=== PATIENT | female | born 1940 | race Caucasian/White ===

== ENCOUNTER 2021-06-18 17:32 | Outpatient (REF) | payer MEDICARE, SELFPAY ==
[2021-06-18 21:30] LABS: Abs Immature Grans 0.03 10^3/uL (0.0-0.06); Absolute Basophil Count 0.04 10^3/uL (0.0-0.2); Absolute Eosinophil Count 0.12 10^3/uL (0.0-0.7); Absolute Monocyte Count 0.61 10^3/uL (0.1-0.8); Absolute Neutrophil Count 7.24 10^3/uL (1.2-6.7); Basophils % 0.4; Eosinophils % 1.3; HCT 38.8 % (36.0-46.0); HGB 12.5 g/dL (11.2-15.7); Immature Grans % 0.3; MCHC 32.2 % (32.0-36.0); MCV 93.3 fL (80-95); MPV 10.4 fL (8.0-11.0); Monocytes % 6.6; Neutrophils % 78.4; Nucleated RBC 0 %; Platelet Count 299 10^3/uL (130-400); RBC 4.16 10^6/uL (3.93-5.22); RDW 12.1 % (11.7-14.6); RDW-SD 41.9 fL; WBC 9.24 10^3/uL (4.4-10.8)
[2021-06-18 21:35] LABS: ESR 28 mm/hr (0-30)
[2021-06-18 21:49] LABS: C-Reactive Protein 8.35 mg/dL (0.0-0.3)
== END 2021-06-18 17:33 | disposition home or self-care (01) ==
LOC: NCHCN 17:32
PROVIDERS: PCP Family Medicine; Visit Provider Family Medicine
DX: R53.83 Other fatigue; M62.81 Muscle weakness (generalized); R52 Pain, unspecified
CPT/HCPCS: 85652; 85025; 86140

== ENCOUNTER 2021-07-03 17:11 | Outpatient (REF) | payer MEDICARE, SELFPAY | END 2021-07-03 17:12 | disposition home or self-care (01) | LOC: NCHCN 17:11 | PROVIDERS: PCP Family Medicine; Visit Provider Family Medicine | DX: R53.83 Other fatigue (principal); M62.81 Muscle weakness (generalized); M25.59 Pain in other specified joint | CPT/HCPCS: 86140 ==

== ENCOUNTER 2022-02-15 14:49 | Outpatient (REF) | payer MEDICARE, SELFPAY ==
--- OUTSIDE RECORDS SUMMARY | 2022-02-15 15:06 | XMS_ITS | Encounter Summary ---
:1940 Author Organization [facility] Address [address] [place] [address] Care Team Providers Name Role Phone Leena Higgins MD Primary Care Provider Reason for Visit Reason Comments Other revision bilateral lower lid blepharoplasty Encounter Details Date Type Department Care Team Description 03/18/2019 Office Visit [facility] Romel Garcia for Plastic, Reconstructive D, cosmetic surgery & Cosmetic Surgery - [address] [place] [address] (P rimary Dx) [address], [address] [place] [phone] Social History Tobacco Use Types Packs/Day Years Used Date Never Smoker Smokeless Tobacco: Never Used Alcohol Use Standard Drinks/Week Comments Yes 0 (1 standard drink = 0.6 oz pure alcoho l) Wine occasionally Alcohol Habits Answer Date Recorded How often do you have a drink containing alcohol? Not asked How many drinks containing alcohol do you have on a Not aske d typical day when you are drinking? How often do you have six or more drinks on one Not asked occasion? Comment: Wine occasionally 04/24/2010 Sex Assigned at Date Recorded Not on file documented as of this encounter Patient Instructions Patient Quin Fournier RN - 03/18/2019 14:00 EDT May shower after 24 hour, pat wounds dry gently, please do rub your eyes Bacitracin ointment to wounds twice per day Tylenol as needed for discomfort as advised on the label You may use an ice pack on your eyes tonight for comfort after 9pm, when anesthetic has worn off, for 10 minutes at a time. documented in this encounter Progress Notes Quin Garcia RN - 03/18/2019 1400 EDT Pre-procedure time out completed using two unique patient identifiers. Correct procedure confirmed and surgical site marked. All team members participated in pause and concurred. When applicable: the fire risk assessment was reviewed. .me omel Garcia MD, MD - 03/18/2019 1400 EDT Patient's Name: Dina Garzon Date of Service: 03/18/19 Interval History: Ms. Garzon returns for planned revision of her bilateral lower blepharoplasties.She notes that she still has small bags laterally under both eyes, worse on her right side than on her left and that her goal today is to improve those. She has been feeling well recently and has had no recent changes in her medical health. Physical Examination: There were no vitals filed for this visit. Ms. Garzon is resting comfortably and is in no acute distress. She is alert and oriented; her interactions are appropriate. Examination of the face reveals that the lower blepharoplasty incisions have healed nicely. There isno ectropion on either side. There is very mild residual fullness laterally on both sides along the tear trough, more noticeable on the right than on the left. Imaging: There is no new imaging Lab Studies: There are no recent lab studies Impression and Plan: Ms. Garzon is a 78 year old woman who is here today for revision of her lower blepharoplasties to address residual lateral fullness. The procedure, risks, benefits, rationale, alternatives, and expectations were reviewed with her. Risks discussed included, but were not limited to, bleeding, infection, hematoma, seroma, need for additional surgery, poor cosmetic outcome, asymmetry, adverse scarring including hypertrophic or keloid scar, ectropion, eyelid malposition or dysfunction, changes in sensation. We discussed the expected recovery process. We discussed post-surgical activity restrictions. We discussed the follow up plan. I sought and answered her questions. She verbalized understanding andelected to proceed with surgery. The informed consent was signed and placed in the paper chart. For details of the procedure, please see the associated procedure note. Follow up next Friday/Friday for suture removal Ophthalmic bacitracin to eyelid incisions twice daily Romel Garcia MD cooker meal and Pediatrics Plastic, Reconstructive, and Cosmetic Surgery Craniofacial and Pediatric Plastic Surgery documented in this encounter Procedure Notes Romel Garcia MD, MD - 03/18/2019 1400 EDT Patient Name: Dina Garzon Date of Service: 03/18/19 Preoperative Diagnosis: (1) cosmetic deformity of lower eyelids Postoperative Diagnosis: (1) cosmetic deformity of lower eyelids Procedure Performed: (1) revision lower blepharoplasties Attending Surgeon: Dr. Romel Garcia Anesthesia: 2cc 1% lidocaine with epinephrine 1:100,000 Estimated Blood Loss: 5cc Specimens: none Indication for procedure: Ms. Garzon is a 78 year old woman who has previously had lower blepharoplasties by me and returns today for scheduled revision due to residual lateral fullness, worse on the right than on the left. Consent: The procedure, risks, benefits, rationale, alternatives, and expectations were reviewed with her. Risks discussed included, but were not limited to, bleeding, infection, hematoma, seroma, need for additional surgery, poor cosmetic outcome, asymmetry, adverse scarring including hypertrophic or keloid scar, ectropion, eyelid malposition or dysfunction, changes in sensation. We discussed the expected recovery process. We discussed post-surgical activity restrictions. We discussed the follow up plan. I sought and answered her questions. She verbalized understanding and elected to proceed with surgery. The informed consent was signed and placed in the paper chart. Description of procedure: A pre-procedure time out was performed. The patient was marked for revision of her bilateral lower blepharoplasties. We reviewed the markings in the mirror and they were approved by the patient. The area was infiltrated with 1% lidocaine with epinephrine 1:100,000. The patient was then prepped and draped in the usual fashion. After waiting an appropriate period for the epinephrine and anesthetic to take effect, The left lateral portion of the previous lower blepharoplasty incision was re-opened using a #15 blade. The skin flap was elevated down to the level of the festoon, taking care to leave the orbicularis muscle down. Complete hemostasis was achieved by applying gentle pressure. The orbicularis muscle was anchored to the lateral orbital rim periosteum with two 5-0 monocryl sutures. The skin was re-draped and marked for excision, then tailor-tacked in place. The mirror was brought in for Ms. Garzon to view her appearance. She felt that the planned excision achieved the desired outcome for her lateral lower eyelid.The excision as performed with iris scissors. The skin was then closed with 6-0 monocryl deep sutures followed by 6-0 prolene simple interrupted skin stitches. The same procedure was then performed on the right side, with Ms. Garzon again approving the planned excision and the final result once both sides were closed. Ophthalmic bacitracin ointment was applied to the incisions. At this point the procedure concluded. The patient tolerated the procedure well. There were no immediate adverse events. All sponges, needles, and instruments were accounted for at the conclusion of the procedure. We reviewed home wound care and scar care. We discussed activity restrictions. We discussed post-operative medications. We discussed the follow up plan. We reviewed concerning signs and symptoms that should prompt a telephone call, an early follow up visit, or a visit to the Emergency Department. I sought and answered her questions. She verbalized understanding and appreciation for her care. documented in this encounter Plan of Treatment Not on filedocumented as of this encounter Visit Diagnoses Diagnosis Encounter for cosmetic surgery - Primary Other plastic surgery for unacceptable c osmetic appearance documented in this encounter Care Teams Academic Tutor Relationship Specialty Start Date End Date Leena Higgins MD PCP - General 03/22/10 [address] [place] [address] documented as of this encounter
--- OUTSIDE RECORDS SUMMARY | 2022-02-15 15:06 | XMS_ITS | Encounter Summary ---
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 Cognitive Status Response Date of Assessment Because of a physical, mental, or emotional condition, No 07/24/2021 does this person have serious difficulty concentrating, remembering, or making decisions? documented as of this encounter Plan of Treatment Not on filedocumented as of this encounter Procedures Procedure Name Priority Date/Time Associated Diagnosis Comme nts CCP ANTIBODIES Routine 07/24/2021 16:22 PMR (polymyalgia Resul ts for this EST rheumatica) ([facility]) proced ure are in ([facility]) the results section. HEPATITIS C AB W Add-On 07/24/2021 16:22 Polyarthritis with R esults for this REFLEX TO HCV RNA EST positive rheumatoid pro cedure are in BY PCR factor ([facility]) ([facility]) the r esults section. HEPATITIS B CORE Add-On 07/24/2021 16:22 Polyarthritis with R esults for this ANTIBODY (TOTAL) EST positive rheumatoid proc edure are in factor ([facility]) ([facility]) the results Encounter for section. screening for other viral diseases HEPATITIS B SURFACE Add-On 07/24/2021 16:22 Polyarthritis wit h Results for this ANTIBODY EST positive rheumatoid procedur e are in factor ([facility]) ([facility]) the results Encounter for section. screening for other viral diseases HEPATITIS B SURFACE Add-On 07/24/2021 16:22 Polyarthritis wit h Results for this ANTIGEN EST positive rheumatoid procedur e are in factor ([facility]) ([facility]) the results Encounter for section. screening for other viral diseases SED RATE Routine 07/24/2021 16:22 PMR (polymyalgia Results for this EST rheumatica) ([facility]) proced ure are in ([facility]) the results section. C REACTIVE PROTEIN Routine 07/24/2021 16:22 PMR (polymyalgia R esults for this EST rheumatica) ([facility]) proced ure are in ([facility]) the results section. ANTI NUCLEAR AB Routine 07/24/2021 16:22 PMR (polymyalgia Resu lts for this (KETAN), IFA EST rheumatica) ([facility]) proced ure are in ([facility]) the results Malaise and fatigue section. documented in this encounter Results HEPATITIS B CORE ANTIBODY (TOTAL) (07/24/2021 16:22 EST) Pathologist Sig nature Hepatitis B Core Ab, Negative Negative [facility] Total LABORATORY SERVICES Specimen Blood - Venous blood (substance) Performing Organization Address City/State/ZIP Code Phon e Number [facility]ORATORY [address] [place] [address] SERVICES HEPATITIS B SURFACE ANTIGEN (07/24/2021 16:22 EST) Pathologist [facility] Hep B Surface Ag Negative Negative [facility] Comment: MED CENTER LAB Expected values: Negative The results of this assay ca n be falsely lowered due to the consumption of Biotin. Specimen Blood - Venous blood (substance) Performing Organization Address City/[facility]/ZIP Code Phon e Number [facility] [address] [place] [address] HEPATITIS C AB W REFLEX TO HCV RNA BY PCR (07/24/2021 16:22 EST) Pathologist Sig nature Hep C Antibody Negative Negative [facility] Specimen Blood - Venous blood (substance) Performing Organization Address [facility]/ZIP Code Phon e Number [facility] [address] [place] [address] HEPATITIS B SURFACE ANTIBODY (07/24/2021 16:22 EST) Pathologist [facility] Hep B Surface Ab, 0.0 See Note [facility] Quantitative Comment: mIU/mL [facility] Clinical Interpretation of Immune Status: Patient is considered to be not immune to infection wi th HBV. The results of this assay can be falsely lowered due t o the consumption of Biotin. Reference Range for Hep B Surface Ab, Quant: Positive: ?>= 12.00 mIU/mL Negative: ?< 5.00 mIU/mL Indeterminate: ??>= 5.00 mIU/mL and < 12.00 mIU/mL Specimen Blood - Venous blood (substance) Performing Organization Address [facility]/ZIP Code Phon e Number [facility] [address] [place] [address] (ABNORMAL) ANTI NUCLEAR AB (KETAN), IFA (07/24/2021 16:22 EST) KETAN Interpretation Positive (A) Negative [facility] Comment: CENTER LABORATORY For titers greater than or e qual to 1:160 (except the centromere and nucleolar patterns) it is recommended that specific follow-up autoantibody testing ??(such as for dsDNA and Extractable Nuclear Antig SERVICES ens) be performed on all diffuse and/or speckled patterns NOTE: For add-on testing dsD NA is stable for 7 days refrigerated while Extractable Nuclear Antigens are only stable for 48 hours refrigerated. KETAN Titer and Pattern 1:160 Homogeneous [facility] C[facility] LABORATORY SERVICES Specimen Blood - Venous blood (substance) Narrative [facility] SERVICES - 07/25/2021 15:06 EST Results were obtained with the [employer] NOV A Lite HEp-2 KETAN Kit by indirect immunofluorescence. Performing Organization Address City/[facility]/ZIP Code Phon e Number [facility]OR[facility]ORY [address] [place] [address] SERVICES CCP ANTIBODIES (07/24/2021 16:22 EST) Pathologist Sig nature CCP Antibodies <2.5 <5.0 U/mL [facility] LABORAT ORY SERVICES Specimen Blood - Venous blood (substance) Performing Organization Address City/[facility]/ZIP Code Phon e Number [facility]OR[facility]ORY [address] [place] [address] SERVICES SED RATE (07/24/2021 16:22 EST) Pathologist Sig nature Sed Rate 9 0 - 30 mm/hr [facility] L AB Specimen Blood - Venous blood (substance) Performing Organization Address [facility] Phon e Number [facility] [address] [place] [address] (ABNORMAL) C REACTIVE PROTEIN (07/24/2021 16:22 EST) Pathologist Sig nature C-Reactive Protein 12.7 (H) <10.0 mg/L [facility] Specimen Blood - Venous blood (substance) Performing Organization Address [facility] Phon e Number [facility] [address] [place] [address] documented in this encounter Visit Diagnoses Diagnosis PMR (polymyalgia rheumatica) ([facility]) ( [facility]) Polymyalgia rheumatica Malaise and fatigue Other malaise and fatigue Polyarthritis with positive rheumatoid f actor ([facility]) ([facility]) Encounter for screening for other viral diseases documented in this encounter Care Teams Motor Rebuilder Relationship Specialty Start Date End Date Leena Higgins MD PCP - General 03/22/[address] [place] [address] documented as of this encounter
--- OUTSIDE RECORDS SUMMARY | 2022-02-15 15:06 | XMS_ITS | Encounter Summary ---
:1940 Author Organization [facility] Address [address] [place] [address] Care Team Providers Name Role Phone Leena Higgins MD Primary Care Provider Reason for Visit Reason Comments Follow-up lower blephs. sx-03/18/19 Encounter Details Date Type Department Care Team Description 04/15/2019 Office Visit [facility] Romel Garcia for Plastic, Reconstructive D, cosmetic surgery & Cosmetic Surgery - [address] [place] [address] (P rimary Dx) [facility] [address] [facility], [address] [place] [phone] Social History Tobacco Use Types Packs/Day Years [...] on file documented as of this encounter Progress Notes Romel Garcia MD, MD - 04/15/2019 1045 EDT Patient's Name: Dina Garzon Date of Service: 04/15/19 Interval History: Ms. Garzon returns for follow up of her revision lower blepharoplasties. She feels that she has had a good result on the left side, but she still sees some puffiness in the festoon region of her right lower eyelid. She is also curious how long it will take the scars to smooth out. Physical Examination: There were no vitals filed for this visit. Ms. Garzon is resting comfortably and is in no acute distress. She is alert and oriented; her interactions are appropriate. Examination of the face reveals that the eyelid incisions are healing nicely. There is no erythema, drainage, or sign of infection. There is some palpable scar tissue, but no more than expected at thisstage. There is good symmetry between the left and right sides and the difference in the festoon regions is extremely subtle. Imaging: There is no new imaging Lab Studies: There are no recent lab studies Impression and Plan: Ms. Garzon is a 78 year old woman who is about 4 weeks status post revision lower blepharoplasties. She is healing well overall and has a good result. She notices some residual fullness of the right side in the area where she had her festoon, but the difference is subtle. We discussed scar maturation and the healing process and I explained that I recommend waiting at least three months before doingany further surgery. We discussed that the difference is quite subtle and we are reaching a point ofdiminishing returns for additional surgery, but that my ultimate goal is for her to be satisfied with the result. I sought and answered her questions. She verbalized understanding and appreciation for h er care. She will follow up with me in a couple of months to continue our conversation Romel Garcia MD recycle worker and Pediatrics Plastic, Reconstructive, and Cosmetic Surgery Craniofacial and Pediatric Plastic Surgery documented in this encounter Plan of Treatment Not on filedocumented as of this encounter Visit Diagnoses Diagnosis Encounter for cosmetic surgery - Primary Other plastic surgery for unacceptable c osmetic appearance documented in this encounter Discontinued Medications Medication Sig Discontinue Reason Start Date End Date acetaminophen (TYLENOL) Take 650 mg by Therapy completed 10/30/2018 04/15/2019 325 mg capsule mouth every 6 hours as needed for Pain. bacitracin ophthalmic Apply thin layer 10/30/2018 ointment twice a day. documented as of this encounter Care Teams Shipmaster Relationship Specialty Start Date End Date Leena Higgins MD PCP - General 03/22/[address] [place] [address] documented as of this encounter
--- OUTSIDE RECORDS SUMMARY | 2022-02-15 15:06 | XMS_ITS | Encounter Summary ---
:1940 Author Organization [facility] Address [address] [place] [address] Care Team Providers Name Role Phone Leena Higgins MD Primary Care Provider Reason for Visit Reason Onset Date Comments Appointment Related 01/24/2022 01.30.2022 Encounter Details Date Type Department Care Team Description 01/24/2022 Telephone [facility] - Aleksandar Gonzalez ment Related [facility] Rheumatology JASON Aguila (01.30.2022) [address] [place] [address] [facility], [address] [place] [phone] Social History Tobacco Use Types Packs/Day Years [...] making decisions? documented as of this encounter Miscellaneous Notes Telephone Encounter - Sherice Rivas - 01/24/2022 1530 EDT Reason for Call: Appointment Related (01.30.2022) Summary/Symptoms: Per patient, cancelled 8.17 appt as she is feeling fine and does not feel she needs this appt at this time. She will call back to schedule when she feels she needs to be seen again. Sherice Rivas 01/24/2022 15:31 documented in this encounter Plan of Treatment Not on filedocumented as of this encounter Visit Diagnoses Not on filedocumented in this encounter Care Teams Blueprint Processor Relationship Specialty Start Date End Date Leena Higgins MD PCP - General 03/22/[address] [place] [address] documented as of this encounter
--- OUTSIDE RECORDS SUMMARY | 2022-02-15 15:06 | XMS_ITS | Encounter Summary ---
:1940 Author Organization [facility] Address [address] [place] [address] Care Team Providers Name Role Phone Leena Higgins MD Primary Care Provider Reason for Visit Reason Comments Follow-up blepharoplasty 10/30 Encounter Details Date Type Department Care Team Description 11/30/2018 Office Visit [facility] Romel Garcia for Plastic, Reconstructive D, cosmetic surgery & Cosmetic Surgery - [address] [place] [address] (P rimary Dx) [address], [address] [place] [phone] Social History Tobacco Use Types Packs/Day Years [...] of this encounter Progress Notes Romel Garcia MD - 11/30/2018 1100 EDT Patient's Name: Dina Garzon Date of Service: 11/30/18 Interval History: Ms. Garzon returns for follow up of her bilateral upper and lower blepharoplasties. She continues to heal well, but remains disappointed with the results of her lower eyelids, particularly in the festoon area. Physical Examination: There were no vitals filed for this visit. Ms. Garzon is resting comfortably and is in no acute distress. She is alert and oriented; her interactions are appropriate. Examination of the face reveals that the incisions are healing nicely. There is no sign of infectionat any of the surgical sites. The bruising has improved and there is good symmetry, but there are still residual festoons bilaterally. Imaging: There is no new imaging Lab Studies: There are no new lab studies Impression and Plan: Ms. Garzon is now about 1 month status post bilateral upper and lower blepharoplasties. She is healing well overall, but is disappointed in the result of her lower eyelid surgery. We discussed the expected healing process and that she may still continue to see improvement as she heals. We discussed that if the results are not to her satisfaction, I will do my best to revise them to meet her needs. We discussed wound and scar care. I sought and answered her questions. She verbalized understanding and appreciation for her care. She will follow up with me in about 1 month. If she remains dissatisfied at that point, we will schedule an in-office revision for about 3 months after her original surgerydate Romel Garcia MD online content editor and Pediatrics Plastic, Reconstructive, and Cosmetic Surgery Craniofacial and Pediatric Plastic Surgery documented in this encounter Plan of Treatment Not on filedocumented as of this encounter Visit Diagnoses Diagnosis Encounter for cosmetic surgery - Primary Other plastic surgery for unacceptable c osmetic appearance documented in this encounter Care Teams Animal Behaviorist Relationship Specialty Start Date End Date Leena Higgins MD PCP - General 03/22/[address] [place] [address] documented as of this encounter
--- OUTSIDE RECORDS SUMMARY | 2022-02-15 15:06 | XMS_ITS | Encounter Summary ---
:1940 Author Organization [facility] Address [address] [place] [address] Care Team Providers Name Role Phone Leena Higgins MD Primary Care Provider Encounter Details Date Type Department Care Team Description 07/25/2021 Orders Only [facility] - Carmelita Gonzalezart hritis with positive rheumatoid factor (HCC-CMS) (HCC) (Primary Dx); [facility] Rhe[place]ology JASON Aguila Encounter for screening for other viral diseases [address] [place], [place] [id number] [place] [address], [address] [place] [phone] Social History Tobacco Use Types Packs/Day Years [...] making decisions? documented as of this encounter Progress Notes Ayla Gonzalez APRN - 07/25/2021 0915 EST Elevated rheumatoid factor from bloodwork. Added on hepatitis panel to evaluate other possible causes. documented in this encounter Plan of Treatment Not on filedocumented as of this encounter Results HEPATITIS B SURFACE ANTIBODY (07/24/2021 16:22 EST) Hep B Surface Ab, 0.0 See Note [facility] Quantitative Comment: mIU/mL [facility] Clinical Interpretation of Immune Status: [...] - Venous blood (substance) Performing Organization Address [facility]/ZIP [facility] Phon e Number [facility] [address] [place] [address] HEPATITIS B CORE ANTIBODY (TOTAL) (07/24/2021 16:22 EST) Pathologist Sig nature Hepatitis B Core Ab, Negative Negative [facility] Total LABORATORY SERVICES Specimen Blood - Venous blood (substance) Performing Organization Address City/[facility]/ZIP Code Phon e Number [facility] [address] [place] [address] SERVICES HEPATITIS C AB W REFLEX TO HCV RNA BY PCR (07/24/2021 16:22 EST) Pathologist Sig nature Hep C Antibody Negative Negative [facility] Specimen Blood - Venous blood (substance) Performing Organization Address [facility] Phon e Number [facility] [address] [place] [address] HEPATITIS B SURFACE ANTIGEN (07/24/2021 16:22 EST) Hep B Surface Ag Negative Negative [facility] Comment: [facility] Expected values: Negative The results of this assay ca n be falsely lowered due to the consumption of Biotin. Specimen Blood - Venous blood (substance) Performing Organization Address City/State/ZIP Code Phon e Number [facility] [address] [place] [address] documented in this encounter Visit Diagnoses Diagnosis Polyarthritis with positive rheumatoid f actor ([facility]) ([facility]) - Primary Encounter for screening for other viral diseases documented in this encounter Care Teams Command And Control Specialist Relationship Specialty Start Date End Date Leena Higgins MD PCP - General 03/22/10 [address] [place] [id number] documented as of this encounter
--- OUTSIDE RECORDS SUMMARY | 2022-02-15 15:06 | XMS_ITS | Encounter Summary ---
:1940 Author Organization [facility] Address [address] [place] [address] Care Team Providers Name Role Phone Leena Higgins MD Primary Care Provider Reason for Visit Reason Onset Date Comments Post-OP Follow Up 11/02/2018 Encounter Details Date Type Department Care Team Description 11/02/[address] [facility] Evangelina Velásquez RN Post-OP Follow Up Plastic, Reconstructive & [address] [place] [address] Cosmetic Surgery - [place], [place] [id number] [place] [address], [address] [place], [place] [id number] Social History Tobacco Use Types Packs/Day Years [...] on file documented as of this encounter Miscellaneous Notes Telephone Encounter - Evangelina Velásquez RN - 11/02/2018 1508 EDT Post op follow up phone call was made 11/02/18 Patient condition was discuss with Dina Type of Surgery: bilateral Upper and lower blephroplasty Surgeon:Romel Garcia MD Date of Surgery:10/30/18 Appetite:no nausea and no vomiting normal po intake Activity: wnl Drains: Drains none Incision and dressings:no concerns Pain:well controlled no pain per patient ABX:Yes bacitracin ointment BID Fever:no fever or chills Voiding:wnl Problems/ Concerns none Additional Info / Patient education Using cloths soaked in ice water and applying to her eyelids to help decrease the swelling. Date of post-op/ follow up visit 11/03/18 EVANGELINA VELÁSQUEZ RN documented in this encounter Plan of Treatment Not on filedocumented as of this encounter Visit Diagnoses Not on filedocumented in this encounter Care Teams Communications Strategist Relationship Specialty Start Date End Date Leena Higgins MD PCP - General 03/22/10 [address] [place] [id number] documented as of this encounter
--- OUTSIDE RECORDS SUMMARY | 2022-02-15 15:06 | XMS_ITS | Encounter Summary ---
:1940 Author Organization [facility] Address [address] [place] [address] Care Team Providers Name Role Phone Leena Higgins MD Primary Care Provider Reason for Visit Reason Comments Post-OP Follow Up Encounter Details Date Type Department Care Team Description 06/28/2019 Post-op Visit [facility] Romel Garcia for Plastic, Reconstructive MD Griselda cosmetic surgery & Cosmetic Surgery - [address] [place] [address] (P rimary Dx) [facility] [address], [address] [place] [phone] Social History Tobacco Use Types Packs/Day Years [...] encounter Progress Notes Romel Garcia MD - 06/28/2019 1100 EST Patient's Name: Dina Garzon Date of Service: 06/28/19 Interval History: Ms. Garzon returns for follow up of her lower blepharoplasties. She reports thatshe still sees a significant residual fullness on the right side. The left side has smoothed more, but she also notes residual fullness just below and lateral to the eyelid on that side as well. Physical Examination: There were no vitals filed for this visit. Ms. Garzon is resting comfortably and is in no acute distress. She is alert and oriented; her interactions are appropriate. Examination of the face reveals that the eyelid incisions are well-healed. There is no erythema or sign of infection. The lids are in good position without ectropion. There is subtle fullness inferior and lateral to the right lower eyelid; there is a more subtle fullness in the same position on the left side. Imaging: There is no new imaging Lab Studies: There are no recent lab studies Impression and Plan: Ms. Garzon is a 78 year old woman who is here for follow up of lower blepharoplasties performed inOctober 2018 and revised in March 2019. She feels that there has been some improvement, particularly on the left side, but not as much as she would like. We discussed next steps to help address her concerns. We discussed filler for the tear trough area and we discussed additional surgery. We also discussed the option of no further intervention. I explained that I am not confident that I will be able toachieve the result she is looking for with an additional surgical procedure; I offered her referral to one of my partners or to Dr. Suh and/or Dr. Hewitt, my occuloplastic surgery colleagues, for a seco nd opinion. Ms. Garzon expressed her disappointment with the result and is not interested in referral at this time. She notes she is scheduled to see her change management director soon for laser treatment and that she is planning to ask them about options as well. I sought and answered her questions. She verbalized understanding and will follow up with me at her convenience to continue our conversation. Romel Garcia MD gas roller operator and Pediatrics Plastic, Reconstructive, and Cosmetic Surgery Craniofacial and Pediatric Plastic Surgery I spent 25 minutes in [id number] consultation with Ms. Garzon today. More than 50% of that time was spent in counseling and coordination of care as described in today's note. documented in this encounter Plan of Treatment Not on filedocumented as of this encounter Visit Diagnoses Diagnosis Encounter for cosmetic surgery - Primary Other plastic surgery for unacceptable c osmetic appearance documented in this encounter Care Teams Flue Cleaner Relationship Specialty Start Date End Date Leena Higgins MD PCP - General 03/22/10 [address] [place] [address] documented as of this encounter
--- OUTSIDE RECORDS SUMMARY | 2022-02-15 15:06 | XMS_ITS | Encounter Summary ---
:1940 Author Organization [facility] Address [address] [place] [address] Care Team Providers Name Role Phone Leena Higgins MD Primary Care Provider Reason for Visit Reason Comments Post-OP Follow Up suture removal, revision of her bilateral lower blepharoplasties Encounter Details Date Type Department Care Team Description 03/22/2019 Office Visit [facility] Romel Garcia for Plastic, Reconstructive D, cosmetic surgery & Cosmetic Surgery - [address] [place] [address] (P rimary Dx) [facility] [address] [facility], [address] [place] [phone] Social History Tobacco Use Types Packs/Day Years [...] Progress Notes Romel Garcia MD, MD - 03/22/2019 1130 EDT Patient's Name: Dina Garzon Date of Service: 03/22/19 Interval History: Ms. Garzon returns for follow up after revision of her lower blepharoplasties on03/18/2019. She reports that she was happy until she woke up this morning and noted that the swellingunder her eyes is worse today than it was yesterday. She sees some puffiness at the site of her previous under-eye bags and would like to know if this will smooth out. Physical Examination: There were no vitals filed for this visit. Ms. Garzon is resting comfortably and is in no acute distress. She is alert and oriented; her interactions are appropriate. Examination of the face reveals that there is some residual swelling of the lower eyelids. The overall contour has improved and there is good symmetry. There is no ectropion. The sutures were removed. There is no sign of erythema, drainage, or infection. There is mild periorbital bruising on both sides. Imaging: There is no new imaging Lab Studies: There are no recent lab studies Impression and Plan: Ms. Garzon returns for follow up 4 days after revision of her lower blepharoplasties. She noticed worse swelling today when she woke up compared to the day before and is concerned. We discussed that swelling typically peaks around 3 days after surgery, so having significant swelling 4 days later is not outside the normal range. We discussed that the lower eyelids were quite smooth and the bags had resolved at the end of surgery, so I expect that once the swelling goes down, she will end up with anappearance close to what we had at the end of her procedure. We discussed that there are no guarantees since the healing process can be variable, but that I have no reason to believe the swelling will not resolve. We discussed minimizing her activity level and taking things easy during the recovery process. We discussed concerning signs and symptoms to watch for. We discussed following up in about 3 weeks to allow things time to settle down. I sought and answered her questions. She verbalized understanding and appreciation for her care. Romel Garcia MD livestock buyer and Pediatrics Plastic, Reconstructive, and Cosmetic Surgery Craniofacial and Pediatric Plastic Surgery documented in this encounter Plan of Treatment Not on filedocumented as of this encounter Visit Diagnoses Diagnosis Encounter for cosmetic surgery - Primary Other plastic surgery for unacceptable c osmetic appearance documented in this encounter Care Teams Measurement And Verification Engineer Relationship Specialty Start Date End Date Leena Higgins MD PCP - General 03/22/[address] [place] [address] documented as of this encounter
--- OUTSIDE RECORDS SUMMARY | 2022-02-15 15:06 | XMS_ITS | Encounter Summary ---
:1940 Author Organization [facility] Address [address] [place] [address] Care Team Providers Name Role Phone Leena Higgins MD Primary Care Provider Reason for Visit Reason Comments Follow-up PMR. Reports feeling fine, n o areas are bothersome. Encounter Details Date Type Department Care Team Description 08/15/2021 Telemedicine [facility] - Carlos, Polyart hritis with positive rheumatoid factor ([facility]) ([facility]) (Primary Dx); [facility] [place] JASON Aguila PMR (polymyalgia rheumatica) ([facility]) ( [facility]) [address], [address] [place] [address] Social History Tobacco Use Types Packs/Day Years [...] on file documented as of this encounter Last Filed Vital Signs Vital Sign Reading Time Taken Comments Blood Pressure - - Pulse - - Temperature - - Respiratory Rate - - Oxygen Saturation - - Inhaled Oxygen Concentration - - Weight 63 kg (139 lb) 08/15/2021 0931 EST Height 162.6 cm (5' 4) 08/15/2021 0931 EST Body Mass Index 23.86 08/15/2021 0931 EST documented in this encounter Functional Status Functional Status Response [...] as of this encounter Progress Notes Ayla Gonzalez, PARUL - 08/15/2021 1300 EST [facility] [place] Visit Today's visit was provided via telephone audio only. The location of the patient: Home The location of the provider: Office Verbal consent: The concept of ???Telemedicine?? has been described to the patient. Patient has been informed of the anticipated benefits and possible risks. Patient understands the information provided regarding telemedicine, has had the opportunity to ask questions about this information, and all questions have been answered to patient???s satisfaction. Patient consents for the use of telemedicine in his/her medical care and authorizes the transmission of any relevant medical information to providers and their staff involved in patient???s medical or mental health care. Verbal consent obtained by myself or auxiliary staff: yes. I have determined that an audio-only visit is appropriate due to: Patient request Subjective: Chief Complaint(s): Follow-up (PMR. Reports feeling fine, no areas are bothersome.) HPI: Initial evaluation on 07/24/21 Onset of bilateral shoulder pain/weakness in May, Endorsed some mild hand swelling as well Sudden 16 pound weight loss in a month (had been modifying diet) Associated fatigue. Reported bald spot on crown of her head and hair thinning Previous labs on 06/18/21 - [facility] CRP = 8.35 (0-0.3), ESR = 28 07/03/21 - CRP = 6.5 (0-0.3) INTERVAL HISTORY: Additional labs drawn at [facility] on 07/24/21 -CCP, + RF 1:40; KETAN + 1:160 homogenous pattern CRP = 12.7 (< 10mg/L) Reports she is currently taking 15mg prednisone once daily Denies joint pain, swellig or myalgia. No fatigue Has long history of headaches but no change in quality or intensity of those headaches No vision changes Decided to cancel her trip Seeing Dr. Higgins her PCP next week for guidance with prednisone taper I have reviewed patient's tobacco history: reports that she has never smoked. She has never used smokeless tobacco. I have reviewed current problem list and current medications. ROS: Review of Systems Constitutional: Negative for malaise/fatigue and weight loss. Eyes: Negative for blurred vision and pain. Cardiovascular: Negative for chest pain and palpitations. Gastrointestinal: Negative for blood in stool, heartburn and nausea. Musculoskeletal: Negative for falls and joint pain. Skin: Negative for rash. Neurological: Positive for headaches. Objective: Examination: Home Vitals: Ht 162.6 cm (64) Wt 63 kg (139 lb) BMI 23.86 kg/m?? Pertinent exam findings: speaking in full sentences, no audible wheeze and mood and affect appropriate Data reviewed with patient: Reviewed and/or ordered active problem list, medication list, allergies,family history, notes from last encounter, lab results tests Assessment & Plan: 1. Polyarthritis with positive rheumatoid factor (HCC-CMS) ([facility]) Previous KETAN and RF positive with response to oral prednisone Recommend follow up labs to positive KETAN including ds DNA (double stranded DNA) and DICKSON (extractablenuclear antigen) panel to rule out other underlying rheumatologic processes 2. PMR (polymyalgia rheumatica) (HCC-CMS) ([facility]) Continue with prednisone taper and those meds will be managed by her PCP Had previously discussed appropriate tapering schedule with Dr. Higgins. If any increase in hand/wrist, joint swelling with lowering of prednisone, consider initiation of prednisone sparing agent such as hydroxychloroquine or methotrexate. Dina agreed to a follow up to be scheduled with me in 6 months. If that appointment is not needed as she is being closely followed by Dr. Higgins, ok to cancel and follow up as needed. Patient initiated phone contact with the office: yes. Patient is an established patient (parent, guardian) yes. E/M provided within previous 7 days for same medical assessment: no Anticipate E/M service within 24hrs or next available urgent appointment no. This visit was conducted by telephone. A total of 23 minutes was spent on this encounter on the day of this encounter. documented in this encounter Plan of Treatment Not on filedocumented as of this encounter Visit Diagnoses Diagnosis Polyarthritis with positive rheumatoid f actor ([facility]) ([facility]) - Primary PMR (polymyalgia rheumatica) ([facility]) ( [facility]) Polymyalgia rheumatica documented in this encounter Care Teams Sales Project Engineer Relationship Specialty Start Date End Date Leena Higgins MD PCP - General 03/22/10 [address] [place] [address] documented as of this encounter
--- OUTSIDE RECORDS SUMMARY | 2022-02-15 15:06 | XMS_ITS | Encounter Summary ---
:1940 Author Organization [facility] Address [address] [place] [address] Care Team Providers Name Role Phone Leena Higgins MD Primary Care Provider Encounter Details Date Type Department Care Team Description 07/10/2021 Abstract [facility] Ayla Cisneros NP Rheumatology [address] [facility] [address] [facility], [address] [place] [address] [place] [address] (Wo rk) Social History Tobacco Use Types Packs/Day Years [...] documented as of this encounter Progress Notes Jai Goddard MA - 07/10/2021 1018 EST Abstraction done 07/10/21 jms documented in this encounter Plan of Treatment Not on filedocumented as of this encounter Visit Diagnoses Not on filedocumented in this encounter Historical Medications This list may reflect changes made after this encounter. Medication Sig Dispensed Refills Start Date End Date predniSONE (DELTASONE) 10 Take 10 mg by mouth 0 0 06/20/2021 mg tablet daily. 20 MG daily x one week, then reduced to 10 mg calcium citrate/vitamin Take by mouth daily. 0 D3 (CALCIUM CITRATE + D 250-100 MG ORAL) added in this encounter Care Teams Dietitian Chief Relationship Specialty Start Date End Date Leena Higgins MD PCP - General 03/22/10 [address] [place] [id number] documented as of this encounter
--- OUTSIDE RECORDS SUMMARY | 2022-02-15 15:06 | XMS_ITS | Encounter Summary ---
:1940 Author Organization [facility] Address [address] [place] [address] Care Team Providers Name Role Phone Leena Higgins MD Primary Care Provider Reason for Visit Reason Comments Post-OP Follow Up Encounter Details Date Type Department Care Team Description 12/31/2018 Office Visit [facility] Romel Garcia for Plastic, Reconstructive D, cosmetic surgery & Cosmetic Surgery - [address] [place] [address] (P rimary Dx) [address], [address] [place] [phone] Social History Tobacco Use Types Packs/Day Years [...] encounter Progress Notes Romel Garcia MD - 12/31/2018 0930 EDT Patient's Name: Dina Garzon Date of Service: 12/31/18 Interval History: Ms. Garzon returns for follow up of her blepharoplasties. She reports that she is still bothered by her lateral lower eyelids. She reports no pain and no signs of infection Physical Examination: There were no vitals filed for this visit. Ms. Garzon is resting comfortably and is in no acute distress. She is alert and oriented; her interactions are appropriate. Examination of the face reveals that the surgical incisions have healed nicely. There is good symmetry, but there are still small bilateral festoons. There is no ectropion or entropion. Imaging: There is no new imaging Lab Studies: There are no recent lab studies Impression and Plan: Ms. Garzon is about 2 months status post bilateral upper and lower blepharoplasties. She remains dissatisfied with her bilateral festoons. We reviewed the options for treatment and I have recommendedan in-office revision to help with her concerns. We discussed the timing of the surgery and I recomme nded that she wait until 3 months after her original surgery. I sought and answered her questions. She verbalized understanding and would like to proceed. We will schedule at her convenience. We will take preoperative photos on the day of the procedure Romel Garcia MD oil burner mechanic and Pediatrics Plastic, Reconstructive, and Cosmetic Surgery Craniofacial and Pediatric Plastic Surgery documented in this encounter Plan of Treatment Not on filedocumented as of this encounter Visit Diagnoses Diagnosis Encounter for cosmetic surgery - Primary Other plastic surgery for unacceptable c osmetic appearance documented in this encounter Care Teams Sales Lead Generator Relationship Specialty Start Date End Date Leena Higgins MD PCP - General 03/22/[address] [place] [address] documented as of this encounter
--- OUTSIDE RECORDS SUMMARY | 2022-02-15 15:06 | XMS_ITS | Clinical Summary ---
:1940 Author Organization [facility] Address [address] [place] [address] Care Team Providers Name Role Phone Leena Higgins MD Primary Care Provider Allergies Active Allergy Reactions Severity Noted Date Comments Gabapentin 07/10/2021 Causes rash Medications Medication Sig Dispensed Refills Start Date End Date Status Glucosamine 1,000 mg Take by mouth 0 04/24/2010 Active Tab daily. ibuprofen (MOTRIN) 200 Take 200 mg by 0 Active mg tablet mouth every 6 hours as needed. omega 6-yis-sij-fish Take 1 Cap by 0 Active oil (FISH OIL) mouth daily. 120-180-500 mg capsule ZOLMitriptan (ZOMIG) Take 2.5 mg by 0 Active 2.5 mg mouth as needed tabletIndications: for Migraine. migraine calcium citrate/vitamin Take by mouth 0 Active D3 (CALCIUM CITRATE + D daily. 250-100 MG ORAL) predniSONE (DELTASONE) Take 10 mg by 0 06/20/2021 Active 10 mg tablet mouth daily. 20 MG daily x one week, then reduced to 10 mg Active Problems Problem Noted Date Memory deficit 07/03/2021 Proximal muscle weakness 07/03/2021 Malaise and fatigue 07/03/2021 Chronic arthralgias of knees and hips 07/03/2021 Myalgia 07/03/2021 Psoas tendinitis, left hip 07/03/2021 Bursitis of both shoulders 07/03/2021 Health care maintenance 07/03/2021 Screening breast examination 07/03/2021 Bundle branch block, right 07/03/2021 Migraine 07/03/2021 Screening for diabetes mellitus 07/03/2021 Overweight 07/03/2021 Encounters Date Type Specialty Care Team Description 01/24/2022 Telephone Rheumatology Ayla Gonzalez NP Appoi ntment Related (01.30.2022) from Last 3 Months Surgical History Surgery Date Site/Laterality Comments CATARACT REMOVAL Medical History Medical History Date Comments Cataract History of colonic polyps Date unknown Family History Medical History Relation Name Comments Arthritis Other Relation Name Status Comments Other Social History Tobacco Use Types Packs/Day Years Used Date Never Smoker Smokeless Tobacco: Never Used Tobacco Cessation: Counseling Given: No Alcohol Use Standard Drinks/Week Comments Yes 0 [...] Assigned at Date Recorded Not on file Last Filed Vital Signs Vital Sign Reading Time Taken Comments Blood Pressure 112/72 07/24/2021 1500 EST Pulse 92 07/24/2021 1500 EST Temperature 36.4 ??C (97.5 ??F) 07/24/2021 1500 EST Respiratory Rate 21 10/30/2018 191 EDT Oxygen Saturation 97% 10/30/20181914 EDT Inhaled Oxygen Concentration - - Weight 63 kg (139 lb) 08/15/2021 0931 EST Height 162.6 cm (5' 4) 08/15/2021 0931 EST Body Mass Index 23.86 08/15/2021 0931 EST Plan of Treatment Health Maintenance Due Date Last Done Comments COVID-19 Vaccine (#1) 02/18/1941 Fall Risk Screening 07/24/2022 07/24/2021 Insurance Payer Benefit Plan / Subscriber ID Effective Dates Phone Addre ss Type Group MEDICARE MEDICARE A/B [id number] 2006-Present [id number] [place] [address] Duran,Antoinet Personal/Family Self 1940 [address] [place] [address] Duran,Antoinet Personal/Family Self [address] [place] [address] Duran,Antoinet Personal/Family Self 1940 [address] ([address]) [address] [place], [place] [address] Care Teams Stretcher And Drier Relationship Specialty Start Date End Date Leena Higgins MD PCP - General 03/22/[address] [place] [address]
--- OUTSIDE RECORDS SUMMARY | 2022-02-15 15:06 | XMS_ITS | Encounter Summary ---
:1940 Author Organization [facility] Address [address] [place] [address] Care Team Providers Name Role Phone Leena Higgins MD Primary Care Provider Reason for Visit Reason Comments Post-OP Follow Up bilateral upper and lower bl epharoplasties Encounter Details Date Type Department Care Team Description 11/03/2018 Office Visit [facility] Romel Garcia for Plastic, Reconstructive D, cosmetic surgery & Cosmetic Surgery - [address] [place] [address] (P rimary Dx) [address], [address] [place] [id number] Social History Tobacco Use Types Packs/Day Years [...] encounter Progress Notes Romel Garcia MD - 11/03/2018 1045 EDT Patient's Name: Dina Garzon Date of Service: 11/03/18 Interval History: Ms. Garzon returns for follow up after bilateral upper and lower blepharoplasties. She reports that her pain is well controlled. She denies any fever, chills, nausea, vomiting, drainage, or redness. She has noticed no changes in her visual acuity. She also denies dry eyes or excessive tearing. Physical Examination: There were no vitals filed for this visit. Ms. Garzon is resting comfortably and is in no acute distress. She is alert and oriented; her interactions are appropriate. Examination of the face reveals that there is expected post-operative swelling and bruising. The surgical incisions are healing well. There is no erythema, drainage, or sign of infection. The sutures are ready to be removed. Imaging: There is no new imaging Lab Studies: There are no recent lab studies Impression and Plan: Ms. Garzon is now 4 days status post bilateral upper and lower blepharoplasties. She is here todayfor follow up and suture removal. The sutures were removed without difficulty. We reviewed wound andscar care. We discussed sun avoidance and using sunscreen once the incisions have completely healed.We discussed the expected recovery process from this point forward. We discussed concerning signs and symptoms that should prompt an early follow up visit, a telephone call, or a visit to the EmergencyDepartment. I sought and answered her questions. She verbalized understanding and appreciation for her care. She will follow up with me in 2-3 weeks Romel Garcia MD surfboard maker and Pediatrics Plastic, Reconstructive, and Cosmetic Surgery Craniofacial and Pediatric Plastic Surgery documented in this encounter Plan of Treatment Not on filedocumented as of this encounter Visit Diagnoses Diagnosis Encounter for cosmetic surgery - Primary Other plastic surgery for unacceptable c osmetic appearance documented in this encounter Care Teams C Python Developer Relationship Specialty Start Date End Date Leena Higgins MD PCP - General 03/22/10 [address] [place] [id number] documented as of this encounter
--- OUTSIDE RECORDS SUMMARY | 2022-02-15 15:06 | XMS_ITS | Encounter Summary ---
:1940 Author Organization [facility] Address [address] [place] [address] Care Team Providers Name Role Phone Leena Higgins MD Primary Care Provider Reason for Visit Reason Comments New Patient Visit Referred by PCP Leena Higgins MD at [facility] for proximal muscle weakness. Sh e states her PCP was treating her for PMR but then referred her he re for continued managment. Patient states she is feeling better and she isn't totally sure why she is here. She is currently takin g 10mg of prednisone. Encounter Details Date Type Department Care Team Description 07/24/2021 Office Visit [facility] - Galen Gonzalez current use of systemic steroids (Primary Dx); [facility] Rheumatology JASON Aguila PMR (polymyalgia rheumatica) ([facility] ( [facility]); [address] [facility] [place] [address] [facility], [address] [place] [address] Social History Tobacco Use Types [...] (97.5 ??F) 07/24/2021 1500 EST Respiratory Rate - - Oxygen Saturation - - Inhaled Oxygen Concentration - - Weight 62.5 kg (137 lb 12.8 oz) 07/24/2021 1500 EST Height - - Body Mass Index 23.65 10/16/2018 1117 EDT documented in this encounter Functional Status Functional [...] encounter Progress Notes Ayla Gonzalez APRN - 07/24/2021 1500 EST [facility] Rheumatology Chief Complaint Patient presents with ??? New Patient Visit Referred by PCP Leena Higgins MD at [facility] for proximal muscle weakness. Here PCP was treating her for PMR but then referred her here for continued managment. Patient states she is feeling better and she isn't totally sure why she is here. HPI: 80-year-old woman here today at the request of Leena Higgins MD for evaluation of primarily bilateral shoulder pain and weakness. Patient endorses that she thought she injured her shoulders while opening a window with inability toraise her arms up overhead as well as dress herself. Onset was approximately 45 weeks ago. Underwent bilateral shoulder injections without significant benefit. Labs on 06/18/2021 from [facility] CBC with elevated neutrophils = 7.25 CRP = 8.35 (0-0.3); ESR = 28 Repeat CRP on 07/03/2021 = 6.5 (0-0.3). States she had her first good day on 07/16/2021 with significant decrease in pain. No real immediate response to 10 mg of prednisone once daily initiated about 3 weeks ago. She does endorse some mild hand swelling as well. None in the last 2 weeks. Prior to that, was trying to modify her diet and lose some weight and then had sudden weight loss of16 pounds in 1 month. Weight has been stable in the last 2 weeks. Associated fatigue with her symptoms. Endorses that she as noticed some hair thinning and a bald spot of the crown of her head Has not had a DXA scan in about 14 years. Denies family history of fragility fractures. Mom had arthritis. Patient lives in [place] for the last 18 years. She and her are considering moving back to [place] to be closer to family in [facility] as well as be able to do their usual walking of 2-3 miles aday. Denies any previous joint pains or problems. Only eye symptoms are some floaters. No neck pain, jaw claudication or headaches. Current Outpatient Medications Medication ??? calcium citrate/vitamin D3 (CALCIUM CITRATE + D ORAL) ??? Glucosamine 1,000 mg Tab ??? ibuprofen (MOTRIN) 200 mg tablet ??? omega 3-hbe-vor-fish oil (FISH OIL) 120-180-500 mg capsule ??? predniSONE (DELTASONE) 10 mg tablet ??? ZOLMitriptan (ZOMIG) 2.5 mg tablet No current facility-administered medications for this visit. Allergies include: Gabapentin Past Medical History: Diagnosis Date ??? Cataract ??? History of colonic polyps Date unknown Family History Problem Relation Age of Onset ??? Arthritis Other Social History: Social History Tobacco Use ??? Smoking status: Never Smoker ??? Smokeless tobacco: Never Used Substance Use Topics ??? Alcohol use: Yes Comment: Wine occasionally ??? Drug use: No Previously from [place], [place]. Moved to [place] about 18 years ago. Likely will relocate back to [place] soon. Review of Systems: 13 point ROS was done with the patient. See scanned document for details. Pertinent positives and negatives are noted in the HPI. Physical Examination: Temp 36.4 ??C (97.5 ??F) Wt 62.5 kg (137 lb 12.8 oz) BMI 23.65 kg/m?? EYES: Conjunctivae not injected ENT: Oral and nasal mucosa not examined. Protective mask in place secondary to COVID-19 precautions. NECK: Supple. Normal extension and lateral rotation without pain. NO lymphadenopathy. CHEST: Clear to auscultation bilaterally. CARDIOVASCULAR: Regular rate and rhythm. No murmur. No peripheral edema. ABDOMEN: Soft, non tender. No hepatosplenomegaly. SKIN: No rash on arms, legs, trunk. No nail pitting. NEURO: Left hip flexor strength 4-/5 to manual muscle testing with discomfort. Sensation intact to light touch. MUSCULOSKELETAL EXAM: Normal resting posture. Ambulates with nonantalgic gait. Easily rises from sitting position to standing with good strength and stability without use of her arms. Bilateral shoulder motion well-preserved in forward flexion, abduction as well as internal and external rotation. Good strength manual muscle testing of her rotator cuff in both internal and external rotation. Hands with some bossing of first metacarpals without pain with CMC shuck and grind. Trace amount of tenosynovitis right ulnar wrist. No erythema or warmth. Mild appearance of Heberden nodes over DIP joints. Bilateral hip motion well-preserved. She does have some discomfort in the groin on her left with internal rotation and flexion. Bilateral knee and ankle motion well-preserved. Labs: No visits with results within 6 Month(s) from this visit. Latest known visit with results is: No results found for any previous visit. 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 Alopecia as well as weight loss Recommendations/Evaluation: Recommend repeat inflammatory markers and additional labs today. Time spent reviewing PMR and treatment of slow prednisone taper. She understands that treatment course may take upwards of 10 to 12 months. Patient has concerns as they are doing some prolonged traveling to [facility], as well as other destinations beginning as early as early August. Cautioned against any abrupt cessation of prednisone. She will continue 10 mg dosing for now and hasenough pills to last at least the next 5 days. We will adjust prednisone according to results of labs today. Given her delayed response to prednisone use as well as some reported wrist and hand swelling and weight loss, other rheumatologic etiology may be possible. Phone visit scheduled for early August for re-evaluation and for further adjustment of prednisone as well as review of additional labs. KEN Newell 07/24/2021 15:01 documented in this encounter Plan of Treatment Scheduled Orders Name Type Priority Associated Diagnoses Order S chedule XR DEXA BONE DENSITY Imaging Routine group home current us e of Expected: 07/24/2021 systemic steroids (Approxima te), Expires: 2022 documented as of this encounter Procedures Procedure Name Priority Date/Time Associated Comments Diagnosis RHEUMATOID Routine 07/24/2021 16:22 PMR (polymyalgia Results for this SCREEN/TITRE EST rheumatica) procedure are i n ([facility]) ([facility]) the results section. documented in this encounter Results (ABNORMAL) ANTI NUCLEAR AB (KETAN), IFA (07/24/2021 16:22 EST) KETAN Interpretation Positive (A) Negative [facility] Comment: [facility] For titers greater [...] refrigerated. KETAN Titer and Pattern 1:[address] LABORATORY SERVICES Specimen Blood - Venous blood (substance) Narrative [facility] - 07/25/2021 15:06 EST Results were obtained with the INOVA NOV A Lite HEp-2 KETAN Kit by indirect immunofluorescence. Performing Organization Address City/State/ZIP Code Phon e Number [facility] [address] [place] [address] SERVICES (ABNORMAL) RHEUMATOID SCREEN/TITRE (07/24/2021 16:22 EST) Pathologist Sig nature Rheumatoid Factor Positive (A) Negative [facility] Screen [facility] Rheumatoid Factor Comment: 1:40 [facility] LAB Specimen Blood - Venous blood (substance) Performing Organization Address City/[facility]/ZIP Code Phon e Number [facility] [address] [place] [address] CCP ANTIBODIES (07/24/2021 16:22 EST) Pathologist Sig nature CCP Antibodies <2.5 <5.0 U/mL [facility] Specimen Blood - Venous blood (substance) Performing Organization Address City/[facility]/ZIP Code Phon e Number [facility] [address] [place] [address] SERVICES SED RATE (07/24/2021 16:22 EST) Pathologist Sig nature Sed Rate 9 0 - 30 mm/hr [facility] AB Specimen Blood - Venous blood (substance) Performing Organization Address [facility] Phon e Number [facility] [address] [place] [address] (ABNORMAL) C REACTIVE PROTEIN (07/24/2021 16:22 EST) Pathologist Sig nature C-Reactive Protein 12.7 (H) <10.0 mg/L [facility] Specimen Blood - Venous blood (substance) Performing Organization Address [facility] e Number [facility] [address] [place] [address] documented in this encounter Visit Diagnoses Diagnosis group home current use of systemic steroi ds - Primary Encounter for long-term (current) use of steroids PMR (polymyalgia rheumatica) ([facility]) ( [facility]) Polymyalgia rheumatica Malaise and fatigue Other malaise and fatigue documented in this encounter Discontinued Medications Medication Sig Discontinue Reason Start Date End Date calcium carbonate Take 1 Tab by mouth Duplicate Therapy 07/24/2021 (OS-ROSALES) 500 mg (1,250 daily. mg) tablet documented as of this encounter Care Teams Boilermaker Apprentice Relationship Specialty Start Date End Date Leena Higgins MD PCP - General 03/22/[address] [place] [address] documented as of this encounter
--- OUTSIDE RECORDS SUMMARY | 2022-02-15 15:07 | XMS_ITS | Encounter Summary ---
:1940 Author Organization [facility] Address [address] [place] [address] Care Team Providers Name Role Phone Leena Higgins MD Primary Care Provider Reason for Referral Consult (Routine) - Closed Specialty Diagnoses / Procedures Referred By Contact Refer red To Contact Pain Medicine Diagnoses Low back pain Lumbar radiculopathy Ira Triana [facility] PAYvette [address] [place] [phone] Phone: Fax: Referral ID Status Reason Start Date Expiration Date Visits V isits Requested Authorized [id number] Closed Specialty 06/05/2010 1 1 Services Required Question Answer Reason for Request: low back pain and lumbar rad iculopathy Comments Left TFESI L4-5 onsult (Routine) - Closed Specialty Diagnoses / Procedures Referred By Contact Refer red To Contact Chiropractic Medicine Diagnoses Low back pain Lumbar radiculopathy Ira Triana PA-C [address] [place] [phone] Referral ID Status Reason Start Date Expiration Date Visits V isits Requested Authorized [id number] Closed Specialty 06/05/2010 1 1 Services Required Question Answer Reason for Request: low back pain and lumbar rad iculopathy Reason for Visit Reason Comments Follow-up EMG done today. Encounter Details Date Type Department Care Team Description 06/05/2010 Office Visit [facility] Ira Triana, Low back pain; Spine Program - Aden clemente PA-C Lumbar radiculopathy [address] [place] [address] Social History Tobacco Use Types Packs/Day Years Used Date Never Assessed Alcohol Use Standard Drinks/Week Comments Yes 0 [...] - Inhaled Oxygen Concentration - - Weight 71.2 kg (157 lb) 06/05/2010 1331 EST Height 161.3 cm (5' 3.5) 06/05/2010 1331 EST Body Mass Index 27.38 06/05/2010 1331 EST documented in this encounter Ordered Prescriptions Prescription Sig Dispensed Refills Start Date End Date oxycodone-acetaminophen Take 1 Tab by mouth 30 Tab 0 06/05/2010 (PERCOCET) 10-325 mg per every 6 hours as tablet needed for Pain. oxycodone (OXYCONTIN) 20 Take 1 Tab by mouth 30 Tab 0 06/05/2010 mg CR tablet every 12 hours. pregabalin (LYRICA) 50 mg Take 1 Cap by mouth 90 Cap 2 1 08/06/2009 07/25/2010 capsule 3 times daily. documented in this encounter Progress Notes Ira Issa PA - 06/05/2010 1806 EST Dina Garzon is being seen as a consultation from Dr. Higgins. Chief Complaint Patient presents with ??? Follow-up EMG done today. Diagnoses of Low back pain and Lumbar radiculopathy were pertinent to this visit. HPI: Mrs. Garzon returns for follow-up s/p EMG exam by Dr. Wang. He reports a mild left-sided radiculopathy affecting L4, L5 and S1 with the L4 nerve appearing to be more involved than the L5 or S1. 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 She continues to have left buttock, with left posterior thigh, calf, and dorsum of footpain. She is still walking 4 miles daily but the first mile is very painful. She does feel the pain is getting worse and is more uncomfortable. She denies B&B dysfunction. There is no problem list on file for this patient. History reviewed. No pertinent past medical history. History reviewed. No pertinent past surgical history. History Substance Use Topics ??? Tobacco Use: Not on file ??? Alcohol Use: Yes Wine occasionally Family History Problem Relation Age of Onset ??? Arthritis Other Current outpatient prescriptions Medication Sig Dispense Refill ??? ibuprofen (MOTRIN) 200 mg tablet Take 200 mg by mouth every 6 hours as needed. ??? pregabalin (LYRICA) 50 mg capsule Take 1 Cap by mouth 3 times daily. 90 Cap 2 ??? Glucosamine 1,000 mg Tab Take by mouth daily. No Known Allergies Review of Systems Constitutional: Negative. HENT: Negative. Eyes: Negative. Respiratory: Negative. Cardiovascular: Negative. Gastrointestinal: Negative. Genitourinary: Negative. Musculoskeletal: Positive for back pain. Skin: Negative. Neurological: Negative. Hematological: Negative. Psychiatric/Behavioral: Negative. Physical Exam Constitutional: She is oriented to person, place, and time. She appears well- developed and well-nourished. HENT: Head: Normocephalic and atraumatic. Eyes: Extraocular motions are normal. Cardiovascular: Normal rate. Pulmonary/Chest: Effort normal. Musculoskeletal: Normal gait. 5/5 hip flexion, tibialis anterior, EHL, and peroneal strength bilaterally. Neurological: She is alert and oriented to person, place, and time. 2+ patellar and achilles reflexes b/l. Lower extremity sensation to light touch is intact b/l. Skin: Skin is warm and dry. No rashes, lesions, or hair samm. Psychiatric: She has a normal mood and affect. Ortho Exam Neurologic Exam Mental Status Oriented to person, place, and time. Cranial Nerves CN III, IV, Extraocular motions are normal. Assessment: 69 year old female s/p EMG exam with left L4 lumbar radiculopathy and central stenosis at L4-5. Orders Placed This Encounter Procedure ??? Amb consult chiropractic ??? Ambulatory consult pain clinic Plan: 1) Left L4-5 TFESI and follow-up 2 weeks after injection 2) In the meantime, she may try Neurontin and see if it gives her any relief. She is to start at 100mg TID and titrate up as needed every 3 days. 3) Activity as tolerated. We also discussed trying other conservative treatments including chiropractics. documented in this encounter Plan of Treatment Scheduled Referrals Name Type Priority Associated Diagnoses Order S alladule AMB CONSULT Outpatient Routine Low back pain Ordered: CHIROPRACTIC Referral Lumbar radiculopathy 010 AMB CONSULT PAIN Outpatient Routine Low back pain Ordered: CLINIC Referral Lumbar radiculopathy 010 documented as of this encounter Visit Diagnoses Diagnosis Low back pain Lumbago Lumbar radiculopathy Thoracic or lumbosacral neuritis or radi culitis, unspecified documented in this encounter Discontinued Medications Medication Sig Discontinue Reason Start Date End Date oxycodone (OXYCONTIN) 20 Take 1 Tab by mouth Error 0 06/05/2010 mg CR tablet every 12 hours. oxycodone-acetaminophen Take 1 Tab by mouth Error 06/05/2010 06/05/2010 (PERCOCET) 10-325 mg per every 6 hours as tablet needed for Pain. documented as of this encounter Care Teams Nuclear Weapons Specialist Relationship Specialty Start Date End Date Leena Higgins MD PCP - General 03/22/10 [address] [place] [address] documented as of this encounter
--- OUTSIDE RECORDS SUMMARY | 2022-02-15 15:07 | XMS_ITS | Encounter Summary ---
:1940 Author Organization [facility] Address [address] [place] [address] Care Team Providers Name Role Phone Leena Higgins MD Primary Care Provider Reason for Visit Reason Comments Pre-op Exam bilateral upper and lower li d blepharoplasty Encounter Details Date Type Department Care Team Description 10/19/2018 Office Visit [facility] Romel Garcia for Plastic, Reconstructive D, cosmetic surgery & Cosmetic Surgery - [address] [place] [address] (P rimary Dx) [address], [address] [place] [id number] [phone] Social History Tobacco Use Types Packs/Day Years [...] encounter Progress Notes Romel Garcia MD - 10/19/2018 1300 EDT Patient's Name: Dina Garzon Date of Service: 10/19/18 Interval History: Ms. Garzon returns for a preoperative visit prior to scheduled blepharoplasty. She has decided that she would like to proceed with both upper and lower eyelid surgery. She remains most bothered by her right lower eyelid pouch. She reports that she is in otherwise good health and that there have been no changes in her medical history since her last visit. She has no concerns today. Physical Examination: There were no vitals filed for this visit. Ms. Garzon is resting comfortably and is in no acute distress. She is alert and oriented; her interactions are appropriate. Examination of the face reveals diffuse facial aging. The brows are in good position, but there is mild bilateral lateral hooding. There is bilateral upper dermatochalasis and lower eyelid skin excess.There is bilateral fat herniation, worse on the right. There is bilateral tear trough deformity. There are significant ute mountain's feet bilaterally. Imaging: There is no new imaging Lab Studies: There are no recent lab studies Impression and Plan: Ms. Garzon is a 78 year old woman who is here for a preoperative visit prior to planned bilateral upper and lower blepharoplasties. The procedure, risks, benefits, rationale, alternatives, and expectations were reviewed with her today. Risks discussed included, but were not limited to, bleeding, infection, hematoma, seroma, need for additional surgery, asymmetry, poor cosmetic outcome, adverse scarring including hypertrophic or keloid scar, eyelid malposition including ectropion/entropion/asymmetry, eyelid dysfunction, epiphora, lagophthalmos, dry eye, corneal abrasion. We discussed the expected recovery process. We discussed post-operative medications and activity restrictions. We discussed thefollow up plan. We discussed the expected longevity of the procedure. I sought and answered her questions. She verbalized understanding and elected to proceed with surgery. The informed consent was signed and placed in the paper chart. Informed consent for the use of post-operative narcotic pain medications was also reviewed and signed today. OR for bilateral upper and lower blepharoplasties Ancef telephone answering service operator to OR Romel Garcia MD chemical treatment operator and Pediatrics Plastic, Reconstructive, and Cosmetic Surgery Craniofacial and Pediatric Plastic Surgery I spent 25 minutes in [id number] consultation with Ms. Garzon today. More than 50% of that time was spent in counseling and coordination of care as described in today's note. documented in this encounter Plan of Treatment Not on filedocumented as of this encounter Visit Diagnoses Diagnosis Encounter for cosmetic surgery - Primary Other plastic surgery for unacceptable c osmetic appearance documented in this encounter Care Teams Cook Soup Relationship Specialty Start Date End Date Leena Higgins MD PCP - General 03/22/[address] [place] [address] documented as of this encounter
--- OUTSIDE RECORDS SUMMARY | 2022-02-15 15:07 | XMS_ITS | Encounter Summary ---
:1940 Author Organization [facility] Address [address] [place] [address] Care Team Providers Name Role Phone Leena Higgins MD Primary Care Provider Reason for Visit Reason Comments Back Pain Encounter Details Date Type Department Care Team Description 04/24/2010 Office Visit [facility] Ira Triana Rad icular pain Spine Program - PA-C (Primary Dx) [place] [address] Social History Tobacco Use Types Packs/Day Years [...] - - Weight 71.2 kg (157 lb) 04/24/2010 1357 EST Height 160 cm (5' 3) 04/24/2010 1357 EST Body Mass Index 27.81 04/24/2010 1357 EST documented in this encounter Progress Notes Ira Issa PA - 04/24/2010 1544 EST Dina Garzon is being seen as a consultation from Dr. Higgins. Chief Complaint Patient presents with ??? Back Pain The encounter diagnosis was Radicular pain. HPI: Mrs. Garzon presents with complaints of left leg pain that started 11/23. Initially she had pain that radiated down her left buttock and posterior thigh but stopped above the knee. Now she complains of pain not only in the former but also radiates into her calf causing a vice-like pain and also pain into the dorsum of the foot. She has associated numbness and tingling in her left foot and ankle. The pain is sharp. She denies any back pain or a past history of back pain. At first she was not able to walk very well but is walking ok now. In fact, she walks 4 miles everyday with her . She states the first half mile is painful but then goes away. She has been doing PT since 02/23 and does e- stim, ultrasound, massage, manipulation, and various home exercises. Standing makes the pain worse and sitting on a pillow makes the pain better. She denies any leg weakness. She has tried neurontinin the past without relief. Ibuprofen helps somewhat. There is no problem list on file for this patient. History reviewed. No pertinent past medical history. History reviewed. No pertinent past surgical history. History Substance Use Topics ??? Tobacco Use: Not on file ??? Alcohol Use: Yes Wine occasionally History reviewed. No pertinent family history. Current outpatient prescriptions Medication Sig Dispense Refill ??? Glucosamine 1,000 mg Tab Take by mouth daily. ??? CALCIUM CARBONATE/VITAMIN D3 (CALCIUM + D ORAL) Take by mouth daily. Not on File Review of Systems Constitutional: Negative for fever, chills and unexpected weight change. HENT: Negative. Eyes: Negative. Respiratory: Negative. Cardiovascular: Negative. Gastrointestinal: Negative for diarrhea and constipation. Genitourinary: Negative for difficulty urinating. Musculoskeletal: Negative for back pain. Skin: Negative. Neurological: Positive for numbness. Negative for weakness. Hematological: Does not bruise/bleed easily. Psychiatric/Behavioral: Negative for dysphoric mood. The patient is not nervous/anxious. Physical Exam Constitutional: She is oriented to person, place, and time. She appears well- developed and well-nourished. HENT: Head: Normocephalic and atraumatic. Eyes: Extraocular motions are normal. Cardiovascular: Normal rate and regular rhythm. Pulmonary/Chest: Effort normal. Musculoskeletal: No palpable lumbar or paraspinal tenderness. Patient has flexion with hands to feet, and approximately 15 degrees of extension. Normal gait. She is able to walk on her heels and toes. 5/5 hip flexion,knee extension/flexion, tib ant., peroneals, and EHL bilaterally. Straight leg raise negative bilaterally. Normal hip range of motion. Negative FABERS. Neurological: She is alert and oriented to person, place, and time. 2+ patellar and achilles reflexes bilaterally. Lower extremity sensation to light touch is intact bilaterally. Babinski is down going, no clonus. Skin: Skin is warm and dry. No rashes, lesions, or hair samm. Psychiatric: She has a normal mood and affect. Ortho Exam Neurologic Exam Mental Status Oriented to person, place, and time. Cranial Nerves CN III, IV, Extraocular motions are normal. Radiology: AP, lateral, flexion, extension x-rays reveal mild degenerative scoliosis with mild lateral listhesis L4 on L5, mild DDD at L3-4, L4-5, and L5- S1 with anterior osteophytes. The prior workup of the patient includes: Lumbar MRI reveals moderate to severe central canal stenosis at L4-5, and mild central canal spinal stenosis at L3-4 Assessment: 69 year old female with left lumbar radiculopathy in ?S1 nerve root distribution. MRI does not exactly correlate with patients symptoms. Orders Placed This Encounter Procedure ??? L spine 4 or more views ??? Emg needle exam Plan: 1) EMG left L5 vs. S1 nerve impingement. Follow-up after results of EMG. 2) Continue PT 3) Activity as tolerated. documented in this encounter Plan of Treatment Not on filedocumented as of this encounter Procedures Procedure Name Priority Date/Time Associated Diagnosis Comme nts L SPINE 4 OR MORE Routine 04/24/2010 15:07 Radicular pain Resu lts for this VIEWS EST procedure are i n the results section. documented in this encounter Results L SPINE 4 OR MORE VIEWS (04/24/2010 15:07 EST) Anatomical Region Laterality Modality Other Specimen Narrative [facility] - 04/16 14:54 EST L SPINE 4 OR MORE VIEWS ??Apr 24, 2010 0 3:07:00 PM Signs and Symptoms/Comments: ??729.2-RAD ICULAR PAIN-I9 lumbar radiculopathy Comparison: None available. Findings: AP, lateral and flexion/extens ion views of the lumbar spine were obtained. No height loss deformity is appreciated. Evaluation of the upright AP view demonstrates dextros coliosis of the lumbar spine. ?? There is no listhesis. ??There is multil evel degenerative disc disease characterized by the space height loss a nd endplate proliferative change. Multilevel facet arthropathy not able at L3-L4, L4 to L5 and L5-S1. No dynamic instability is appreci ated on flexion and extension views. Impression: 1. Mild to moderate dextroscoliosis. 2. Multilevel degenerative disc disease and facet arthropathy. 3. No dynamic instability is appreciated on flexion and extension views. I have personally reviewed the images an d the above interpretation and agree with the findings. Procedure Note Chavez Fuentes MD - 04/25/2010 L SPINE 4 OR MORE VIEWS Apr 24, 2010 03: 07:00 PM Signs and Symptoms/Comments: 729.2-RADIC ULAR PAIN-I9 lumbar radiculopathy Comparison: None available. Findings: AP, lateral and flexion/extens ion views of the lumbar spine were obtained. No height loss deformity is appreciated. Evaluation of the upright AP view demonstrates dextros coliosis of the lumbar spine. There is no listhesis. There is multilev el degenerative disc disease characterized by the space height loss a nd endplate proliferative change. Multilevel facet arthropathy not able at L3-L4, L4 to L5 and L5-S1. No dynamic instability is appreci ated on flexion and extension views. Impression: 1. Mild to moderate dextroscoliosis. 2. Multilevel degenerative disc disease and facet arthropathy. 3. No dynamic instability is appreciated on flexion and extension views. I have personally reviewed the images an d the above interpretation and agree with the findings. Performing Organization Address City/State/ZIP Code Phon e Number [facility] documented in this encounter Visit Diagnoses Diagnosis Radicular pain - Primary Neuralgia, neuritis, and radiculitis, un specified documented in this encounter Historical Medications This list may reflect changes made after this encounter. Medication Sig Dispensed Refills Start Date End Date Glucosamine 1,000 mg Tab Take by mouth 0 04/24/20 10 daily. CALCIUM CARBONATE/VITAMIN Take by mouth 0 010 06/05/2010 D3 (CALCIUM + D ORAL) daily. added in this encounter Care Teams Escalator Mechanic Relationship Specialty Start Date End Date Leena Higgins MD PCP - General 03/22/10 [address] [place] [address] documented as of this encounter
--- OUTSIDE RECORDS SUMMARY | 2022-02-15 15:07 | XMS_ITS | Encounter Summary ---
:1940 Author Organization [facility] Address [address] [place] [address] Care Team Providers Name Role Phone Leena Higgins MD Primary Care Provider Reason for Visit Reason Onset Date Comments Appointment Related 08/14/2010 Encounter Details Date Type Department Care Team Description 08/14/2010 Telephone [facility] Spine Ira Triana, Appointment Related Program - [address] [place], [place] [address] Social History Tobacco Use Types Packs/Day Years Used Date Never Smoker Alcohol Use Standard Drinks/Week Comments Yes 0 [...] this encounter Miscellaneous Notes Telephone Encounter - Alexandria Velásquez - 08/14/2010 1040 EST This patient called today wanting to cancel her appt with Viviana on 08/15 because she is feeling so goodafter her injections and doesn't feel it is nessecary to come in again. She will call and schedule another appt if her pain comes back. documented in this encounter Plan of Treatment Not on filedocumented as of this encounter Visit Diagnoses Not on filedocumented in this encounter Care Teams Back Hoe Operator Relationship Specialty Start Date End Date Leena Higgins MD PCP - General 03/22/10 [address] [place] [address] documented as of this encounter
--- OUTSIDE RECORDS SUMMARY | 2022-02-15 15:07 | XMS_ITS | CCD ---
:1940 Author Care Team Providers Name Role Phone DESIRE REYNOLDS Attending Physician Unavailable Vital Signs Unknown or Not Available. Allergies Allergy Code Allergy Type Reaction Status No Known Drug Allergies 0 No known drug allergies Active Procedures Unknown or Not Available. History of Immunizations Unknown or Not Available. Problems Unknown or Not Available. Results Unknown or Not Available. Active Medications Unknown or Not Available. Medications Administered During Visit Unknown or Not Available. Encounters Encounter Diagnosis Diagnosis Code Start Date Pain in left knee [id number] 01/10/2022 Social History Smoking Status Code Start Date End Date Never smoker [id number] Patient Decision Aids Unknown or Not Available. Discharge Instructions You were admitted to [facility] on 01/10/2022 13:30 with a principal diagnosis of Pain in left knee You were discharged from [facility] Should you have any questions prior to d ischarge, please contact a member of your healthcare team. If you have left the [facility] and have any questions, please contact your primary care physician. Chief Complaint and Reason For Visit Unknown or Not Available. Function Status Unknown or Not Available. Plan of Care Unknown or Not Available. Referral/Transition of Care Unknown or Not Available.
--- OUTSIDE RECORDS SUMMARY | 2022-02-15 15:07 | XMS_ITS | Encounter Summary ---
:1940 Author Organization [facility] Address [address] [place] [address] Care Team Providers Name Role Phone Leena Higgins MD Primary Care Provider Reason for Visit Reason Comments Leg Pain left buttock and leg pain Encounter Details Date Type Department Care Team Description 07/25/2010 Office Visit [facility] [place], Lumbar spinal stenosis; [facility] MD Juliet Left l umbar radiculopathy; [facility] Degenerative disc disease, lumbar Interventional Pain [address] [place] [phone] Social History Tobacco Use Types Packs/Day [...] Sign Reading Time Taken Comments Blood Pressure 137/78 07/25/2010 1137 EST Pulse 80 07/25/2010 1137 EST Temperature 36.5 ??C (97.7 ??F) 07/25/2010 1037 EST Respiratory Rate 16 07/25/2010 1037 EST Oxygen Saturation - - Inhaled Oxygen Concentration - - Weight 70.3 kg (155 lb) 07/25/2010 1037 EST Height 162.6 cm (5' 4) 07/25/2010 1037 EST Body Mass Index 26.61 07/25/2010 1037 EST documented in this encounter Patient Instructions Patient InstructionsFern Hagan - 07/25/2010 11:33 EST [facility] [place] [address] Patient Instructions You have had your left lumbar transforaminal epidural steroid injection. The purpose of this procedure has been to place medication which may help relieve your pain. Steroid may be used to decrease theswelling and nerve irritation which may be causing your pain. The following information should help you over the next few days regarding what you may expect. Please take it easy for the rest of today. DO NOT drive a car for the remainder of the day. If you feel sore where the needle(s) entered for the block or develop a flare- up of pain over the next few days, please use ice on the area. You may leave the ice on for up to 20 minutes at a time. Donot use heat, as this may cause swelling. As long as your primary doctor has indicated no restrictions, you may take a mild pain medicine, such as acetaminophen (Tylenol), ibuprofen (Advil, Nuprin, Motrin IB, etc.) or aspirin, if needed. The steroid injection usually takes a few days to become effective. On average, you may notice somerelief in 3 -5 days. However, it may take up to 10 ??? 14 days to know whether the injection was helpful. If the block causes numbness/weakness, it should wear off within a few hours. If the area that the needle(s) were inserted becomes hot, red, swollen, or increasingly tender, or if you develop a fever (100.5 or greater) or chills along with these symptoms, please call our officeimmediately. If you develop increasingly severe neck/back pain, continued numbness or weakness of the arms/legs or changes in your bladder or bowel functions, please call our office at once. Instructions for follow-up If you have any questions about your block, please call FERN HAGAN RN Patient Education Topic: Method: Handout and Verbal Taught to: Patient and Family Barriers: None Outcomes: independent Signature: FERN HAGAN RN documented in this encounter Ordered Prescriptions Prescription Sig Dispensed Refills Start Date End Date gabapentin (NEURONTIN) 300 Take 1 Cap by 90 Cap 2 201008/17/2018 mg capsule mouth. 1 cap at night x 7days. Then 1 cap in morning, 1 at night. Then 1 cap 3 x per day. documented in this encounter Progress Notes Ira Contreras - 07/25/2010 1134 EST Patient Name: Dina Garzon : 1940 Date of Service: 07/25/2010 Cardroom Attendant: Juliet Hernández MD [employer] Superintendent: Ira Contreras MD Procedure: Transforaminal lumbar epidural steroid injection at left L4-L5 Interval History: Mrs. Garzon presents at the request of Ira Issa for evaluation and treatment of her chronic leg pain. The pain is primarily localized to the left leg and radiates to the left foot. This pain has been present for 6 month(s) and is described as hot and burning and and tingling in character. The average pain intensity is 8/10 and is aggravated by walking. Continuing to walk through the pain alleviates the pain eventually. She walks about 4 miles daily. She has no anteriorthigh pain and no back pain. She feels Ibuprofen helps. She tried Neurontin for 2 weeks without feeling any better. She also tried lyrica for 2 weeks without feeling better. Imaging: L-Spine films - Impression: 1. Mild to moderate dextroscoliosis. 2. Multilevel degenerativedisc disease and facet arthropathy. Patient has had an EMG/NCV test with Dr. Wang (06/05/2010) with the following impression This is an abnormal study. 1. There is mild left-sided radiculopathy that appears to be affecting L4, L5 and S1 to a certain degree. My impression is that there is central stenosis and possibly mild superimposed lateral stenosis affecting the L4 nerve root. Allergies: No Known Allergies ROS: GENERAL: no complaints CARDIOVASCULAR: no complaints RESPIRATORY: no complaints GASTROINTESTINAL: no bowel problems GENITOURINARY: no bladder problems MUSCULOSKELETAL: no weakness; does have left leg pain as stated above NEUROLOGICAL: shooting pains down left leg Physical Exam: Vital signs: Patient Vitals in the past 24 hrs: BP Temp Temp src Pulse Resp Height Weight 07/25/10 1037 131/82 mmHg 36.5 ??C (97.7 ??F) Tympanic 83 16 162.6 cm (64) 70.308 kg (155 lb) General:awake, alert, cooperative, no apparent distress and appears stated age HEAD: normocephalic and atraumatic Extremities: WNL Musculoskeletal: Gait: Normal Lumbar Spine: nontender to palpation. Negative sacroiliac joint tenderness. Negative BRAVO maneuver.Negative SLR bilaterally. Extremities: strength is 5/5 in both thighs, calves and ankles. Sensation grossly intact to light touch. Assessment: Pleasant 69 year old woman with chronic left leg pain in the setting of lumbar spinal stenosis and EMG evidence of mild multi-level left sided lumbosacral radiculopathy. Patient with multilevel degenerative disc disease and facet arthropathy but denies axial back pain at present time. 1. 724.02 SPINAL STENOSIS-LUMBAR 2. 724.4 THORACIC OR LUMBOSACRAL NEURITIS OR RADICULITIS UNSPECIFIED Plan: 1. Restart neurontin : 300mg PO QHS x 1 week, then 300mg PO twice daily (morning and bedtime) x 1 week, then 300mg PO TID x 2 weeks and then reassess 2. Proceed with TFESI at left L4-L5 3. Followup: with the pain clinic as needed PROCEDURE: The patient gave informed written consent to proceed with this procedure following a detailed discussion of the risks and benefits associated with epidural steroid injection in the lumbar spine. The patient was then placed in the prone position, the skin over the thoracic area was prepped with chlorhex adine, and the site was draped with sterile towels. Strict sterile technique was maintained throughout the procedure. A hook moment was performed with full staff present to identify the patient, verify the procedure being performed, and review allergies. Fluoroscopy was used to visualize the left L4-L5 neuroforamen. The skin and subcutaneous tissue overthis level was anesthetized by infiltration of 2% lidocaine. An 22G 3.5 inch spinal needles was inserted under fluoroscopic guidance by coaxial technique and advanced the neuroforamen. One pass was requ ired and there was no paresthesia. Contrast dye was injected under live fluoroscopy demonstrating epidural spread as well as spread along the exiting L4 root with no evidence of intravascular or intrathecal injection. After negative aspiration, 80 mg Depo-Medrol and 1 ml 0.25% Bupivacaine were injected. The needle was then flushed and withdrawn. The patient tolerated the procedure well, there were no apparent complications, and she was discharged in stable condition. Written and verbal discharge instructions were reviewed with the patient prior to discharge. Attending attestation: I saw and examined the patient with the resident/fellow. I agree with the findings and plan of care documented in the resident's/fellow's note. In addition, I was present and participated during the entire procedure. Juliet Hernández MD Juliet Ovalle - 07/25/2010 1055 EST Norma Howard - 07/25/2010 1040 EST [facility] Rooming Note Does patient have a Pharmaceutical Salesperson? yes Is patient NPO? (Solids since midnight & liquids for 4 hrs) na Blood Thinners: Is patient on Blood Thinners? no If yes, taking? If stopped, who authorized stopping? Related comments: Infections: Any recent infections, fever of illnesses? no If on antibiotics, is it 7-10 days past the date of completion of antibiotics? no : (for females of child-bearing age) Is there a chance current ? no Other: documented in this encounter Miscellaneous Notes Scanned Note-Null - Inpatient, MD Paulie - 07/26/2010 1456 EST documented in this encounter Plan of Treatment Not on filedocumented as of this encounter Visit Diagnoses Diagnosis Lumbar spinal stenosis Spinal stenosis, lumbar region, without neurogenic claudication Left lumbar radiculopathy Thoracic or lumbosacral neuritis or radi culitis, unspecified Degenerative disc disease, lumbar Degeneration of lumbar or lumbosacral in tervertebral disc documented in this encounter Discontinued Medications Medication Sig Discontinue Reason Start Date End Date pregabalin (LYRICA) 50 Take 1 Cap by Patient Stopped Taking 010 07/25/2010 mg capsule mouth 3 times daily. documented as of this encounter Historical Medications This list may reflect changes made after this encounter. Medication Sig Dispensed Refills Start Date End Date calcium carbonate Take 1 Tab by mouth 0 07/24/2021 (OS-ROSALES) 500 mg (1,250 daily. mg) tablet added in this encounter Care Teams Labor Trainer Relationship Specialty Start Date End Date Leena Higgins MD PCP - General 03/22/[address] [place] [address] documented as of this encounter
--- OUTSIDE RECORDS SUMMARY | 2022-02-15 15:07 | XMS_ITS | CCD ---
[...] Encounters Encounter Diagnosis Diagnosis Code Start Date Screening mammography [id number] 09/04/2021 Social History Smoking Status Code Start Date End Date Never smoker [id number] Patient Decision Aids Unknown or Not Available. Discharge Instructions You were admitted to on 09/04/2021 13:16 with a principal diagnosis of Encounter for screening mammogram for malignant neoplasm of breast You were discharged from on 09/04/2021 13:16 Should you have any questions prior to d ischarge, please contact a member of your healthcare team. If you have left the ho spital and have any questions, please contact your primary care physician. Chief Complaint and Reason For Visit Chief Complaint Date of Onset SCREENING, POSTMENOPAUSAL Function Status Unknown or Not Available. Plan of Care Unknown or Not Available. Referral/Transition of Care Unknown or Not Available.
--- OUTSIDE RECORDS SUMMARY | 2022-02-15 15:07 | XMS_ITS | Encounter Summary ---
:1940 Author Organization [facility] Address [address] [place] [address] Care Team Providers Name Role Phone Leena Higgins MD Primary Care Provider Encounter Details Date Type Department Care Team Description 10/30/2018 Hospital Encounter [facility] Romel Garcia, Perioperative Services- [address] [place] [address] [address] [place] [address] (Wo rk) Social History Tobacco Use Types [...] Sign Reading Time Taken Comments Blood Pressure 124/74 10/30/20181914 EDT Pulse - - Temperature 36 ??C (96.8 ??F) 10/30/20181914 EDT Respiratory Rate 21 10/30/20181914 EDT Oxygen Saturation 97% 10/30/20181914 EDT Inhaled Oxygen Concentration - - Weight 67.6 kg (149 lb) 10/16/20181116 EDT Height 162.6 cm (5' 4) 10/16/2018 111 EDT Body Mass Index 25.58 10/16/2018 1117 EDT documented in this encounter Discharge Diagnoses Diagnosis Z41.1 Encounter for cosmetic surgery-Z41 .1[ICD-10-CM] documented in this encounter Discharge Instructions Frances Esquivel RN - 10/30/2018 18:44 EDT May have Tylenol at 1245 am and every six hours as needed May have Ibuprofen at 1245 am and every six hours as needed Additional InstructionsNita Lebron MD - 10/30/2018 Discharge Instructions: Blepharoplasty Until cleared by Dr. Garcia at your post-operative follow up appointments: Diet ?? You can eat a regular diet ?? Increase your protein intake to help with wound healing ?? Keep well hydrated - drink at least 6 glasses of water per day ?? Eat frequent meals Activity ?? Avoid strenuous activity and activities that will increase your heart rate or blood pressure. Walking is okay ?? Avoid activities that could injure your surgical site ?? Avoid activities like bending forward that can strain your face ?? Keep your head elevated to help decrease post-operative swelling ?? Sleep on pillows to help keep your head elevated at night ?? Sleep on your back instead of on your side or stomach ?? Avoid direct pressure to your face Medications ?? You have been prescribed antibiotic ointment ?? Bacitracin ointment, apply to your eyelid incisions twice per day ?? Avoid getting the ointment in your eyes! ?? You should take non-narcotic pain medications like Tylenol (acetaminophen) ?? Make sure to read all labels and follow the instructions carefully ?? Many medications, including some narcotics, have acetaminophen in them. Do not exceed the maximumrecommended dosage of acetaminophen from all sources combined ?? Do not take medications like aspirin, ibuprofen (Motrin, Advil), or naproxen (Aleve) until cleared by Dr. Garcia Wound Care ?? Apply the antibiotic ointment to your incisions twice per day ?? Swelling and bruising is common after this surgery ?? Do use ice water-soaked washcloths or gauze to help with swelling ?? Do not place ice packs or cold packs on your face; this can lead to frostbite and can damage yourskin! ?? Swelling is usually worst 3-5 days after surgery and usually starts to decrease after that ?? Swelling and bruising can take weeks to completely resolve ?? Avoid direct pressure to your face and sleeping on your face ?? Minor bleeding ?? Pinkish tinged or thin red-tinged drainage from the wound is common for a couple of days after surgery ?? A large amount of bright red blood is not normal. Please call the office or go to the Emergency Department if you have a large amount of bleeding Eye Closing ?? Sometimes patients cannot completely close their eyes after upper blepharoplasty ?? This is normal and will get better over the coming weeks ?? Notify Dr. Garcia if you cannot close your eyes completely so that he can prescribe lubricating ointment to use at night ?? See the medications section for instructions on how to use the ointment Showering/Bathing ?? You may shower below the neck immediately ?? You may shower above the neck in 48 hours ?? Avoid direct water streams or scrubbing any incisions or wounds ?? Cleanse any wounds on your face gently with mild soap and water; do not scrub! ?? Do not immerse yourself in water ?? No baths, hot tubs, pools, lakes, or oceans ?? Do not use a sauna Follow Up ?? Call [phone] during regular business hours to schedule a follow up appointment for suture removal ?? Suture removal should be done 3-4 days after surgery ?? Waiting longer than that can leave train tracks along your incision, so make sure to keep this appointment When to Call/How to Reach Dr. Garcia ?? If you have general questions, please call [phone] during regular business hours and Dr. Garcia or one of the nursing staff will answer your question or return your call as soon as possible ?? For urgent needs during regular business hours, please call [phone] or, if it is an emergency, go to the Emergency Department or call 911 ?? For urgent needs after business hours or on weekends, please call the [facility] linotype operator at [phone] Garcia paged, call 911, or go to the Emergency Department ?? Worrisome signs and symptoms that should prompt a telephone call or a trip to the Emergency Department include: ?? Fevers higher than 101.5 Fahrenheit ?? Shortness of breath ?? Chest pain ?? Calf/leg pain ?? Asymmetric calf/leg swelling ?? Redness, warmth, or unusual drainage from your surgical incisions or wounds ?? Bright red or excessive drainage from your surgical incisions, wounds, or drains documented in this encounter Medications at Time of Discharge Medication Sig Dispensed Refills Start Date End Date Glucosamine 1,000 mg Tab Take by mouth 0 04/24/20 10 daily. ibuprofen (MOTRIN) 200 mg Take 200 mg by 0 tablet mouth every 6 hours as needed. omega 4-hcf-rwh-fish oil Take 1 Cap by mouth 0 (FISH OIL) 120-180-500 mg daily. capsule ZOLMitriptan (ZOMIG) 2.5 Take 2.5 mg by 0 mg tabletIndications: mouth as needed for migraine Migraine. acetaminophen (TYLENOL) Take 650 mg by 0 10/31/19 19 04/15/2019 325 mg capsule mouth every 6 hours as needed for Pain. bacitracin ophthalmic Apply thin layer 3.5 g 0 10/31/19 19 04/15/2019 ointment twice a day. calcium carbonate (OS-ROSALES) Take 1 Tab by mouth 0 07/24/2021 500 mg (1,250 mg) tablet daily. documented as of this encounter Ordered Prescriptions Prescription Sig Dispensed Refills Start Date End Date bacitracin ophthalmic Apply thin layer 3.5 g 0 10/31/19 19 04/15/2019 ointment twice a day. acetaminophen (TYLENOL) Take 650 mg by 0 10/31/19 19 04/15/2019 325 mg capsule mouth every 6 hours as needed for Pain. documented in this encounter Discharge Disposition Disposition Code Departure Means Destination Home or Self Care documented in this encounter Progress Notes Leena Urena RN - 10/16/2018 1127 EDT Dina Garzon has been instructed as follows regarding medication administration for the day of the scheduled procedure. Date of Surgery: 10/30/18 Instructions for Taking Medications Day of Surgery Medication Sig Last Dose Hold DOS Take DOS calcium carbonate (OS-ROSALES) 500 mg (1,250 mg) tablet Take 1 Tab by mouth daily. 10/23/18 Glucosamine 1,000 mg Tab Take by mouth daily. 10/23/18 ibuprofen (MOTRIN) 200 mg tablet Take 200 mg by mouth every 6 hours as needed. 10/27/18 documented in this encounter H&P Notes Nita Lebron MD - 10/30/2018 1434 EDT Surgery History and Physical Date of Service: 10/30/18 Chief Complaint: eyelid drooping History of Present Illness: 78 y.o. female presents for bilateral upper and lower blepharoplasties. Per Dr. Garcia's note from 10/19/18: Ms. Garzon returns for a preoperative visit prior to scheduled blepharoplasty. She has decided that she would like to proceed with both upper and lower eyelid surgery. She remains most bothered by her right lower eyelid pouch. ?? She reports that she is in otherwise good health and that there have been no changes in her medical history since her last visit. She has no concerns today. Today she is feeling well with no recent illness. Past Medical History: History reviewed. No pertinent past medical history. Past Surgical History: Past Surgical History: Procedure Laterality Date ??? CATARACT REMOVAL Medications: No current facility-administered medications on file prior to encounter. Current Outpatient Medications on File Prior to Encounter Medication Sig Dispense Refill ??? calcium carbonate (OS-ROSALES) 500 mg (1,250 mg) tablet Take 1 Tab by mouth daily. ??? Glucosamine 1,000 mg Tab Take by mouth daily. ??? ibuprofen (MOTRIN) 200 mg tablet Take 200 mg by mouth every 6 hours as needed. ??? omega 0-vwl-lrn-fish oil (FISH OIL) 120-180-500 mg capsule Take 1 Cap by mouth daily. ??? ZOLMitriptan (ZOMIG) 2.5 mg tablet Take 2.5 mg by mouth as needed for Migraine. Allergies: No Known Allergies Social History: Social History Tobacco Use ??? Smoking status: Never Smoker ??? Smokeless tobacco: Never Used Substance Use Topics ??? Alcohol use: Yes Comment: Wine occasionally ??? Drug use: No Family History: Family History Problem Relation Age of Onset ??? Arthritis Other Review of Systems: 10 point ROS was negative except as indicated in HPI. Exam: VS: Blood pressure (!) 143/71, temperature 35.7 ??C (96.3 ??F), temperature source Oral, resp. rate 16, height 162.6 cm (64), weight 67.6 kg (149 lb), SpO2 99 %. Gen: no acute distress Heart: regular rate and rhythm Lungs: clear to auscultation bilaterally Abdomen: soft, non-distended, non-tender Extremities: WWP Assessment: 78 y.o. female here for b/l upper and lower blepharoplasties. Plan: ?? OR for above ?? Consent on chart ?? Ancef web content & social media manager to OR Nita Lebron MD, PGY5 10/30/18 14:54 documented in this encounter OR Notes OR Surgeon - Romel Garcia MD - 10/30/2018 1753 EDT Patient Name: Dina Garzon Date of Service: 10/30/18 Preoperative Diagnosis: (1) cosmetic deformity of the eyelids Postoperative Diagnosis: (1) cosmetic deformity of the eyelids Procedure Performed: (1) bilateral upper and lower blepharoplasties (80761-28, 90282-47) Attending Surgeon: Dr. Romel Garcia Department Clinician Surgeons: Dr. Nita Lebron Anesthesia: MAC with local Estimated Blood Loss: 10cc Specimens: eyelid skin for disposal Start Time: 15:37 End Time: 17:35 Indication for procedure: Ms. Garzon is a 78 year old woman who is bothered by periorbital aging, her lower eyelids in particular. She was seen in the office and elected to have both upper and lower blepharoplasties in order to improve her appearance. She presents today for those procedures. Consent: The procedures, risks, benefits, rationale, alternatives, and expectations were reviewed with Ms. Garzon and her . Risks discussed included, but were not limited to, bleeding, infection, hematoma, seroma, need for additional surgery, poor cosmetic outcome, asymmetry, adverse scarring including hypertrophic or keloid scar, eyelid malposition, eyelid dysfunction, lagophthalmos, dry eyes, corneal abrasions. We discussed the expected results and the limitations of blepharoplasty in facial rejuvenation. We discussed post- operative medications and activity restrictions. We discussed the follow up plan. We reviewed concerning signs and symptoms after surgery. I sought and answered their questions. Both verbalized understanding and elected to proceed. The informed consent had previously been signed and is in the electronic medical record. Description of procedure: The patient was met in the preoperative area. Upper blepharoplasty markings were made using her existing supratarsal folds, which are fairly symmetric, as a guide. Calipers were used to ensure adequateremaining upper eyelid skin and symmetrical excisions. The markings were made in concert with the patient and the amount of skin excision and scar position were approved by her after reviewing her appearance and the markings in a mirror. Lower blepharoplasty incisions were also marked. The patient was brought to the operating room and placed supine on the operating table. A preoperative time out was performed. Sequential compression devices were placed. Preoperative antibiotics were given. Sedation was induced by the anesthesia service. The upper eyelids were infiltrated with about 1cc each of 1% lidocaine with epinephrine 1:100,000. The patient was then prepped and draped in the usual sterile fashion. After waiting an appropriate period for the anesthetic and epinephrine to take effect, the markings on the right upper eyelid were incised with a #15 blade. The skin was then excised at the level of the orbicularis fascia using an iris scissors. Complete hemostasis was achieved with gentle pressure application and electrocautery. A narrow strip of orbicularis muscle was also removed with iris scissors. There was not significant fat herniation, so no fat resection was performed. Complete hemostasis was assured. The orbicularis oculi muscle was then closed with 6-0 monocryl buried interrupted sutures. The skin was closed with a series of simple interrupted 6-0 prolene stitches. The lower eyelids were then infiltrated with about 1cc each of 1% lidocaine with epinephrine 1:100,000. We next turned our attention to the left upper eyelid. The exact same procedure as the right upper eyelid was performed. Great care was taken to ensure that the excisions and closure were symmetric.Once both sides were closed, we assessed the symmetry and found that we had achieved a good result. We returned to the right side and began to address the lower eyelid. The marked subciliary incision was made using a #15 blade. A skin flap was dissected, following the plane between the skin and the orbicularis oculi down to the tear trough using tenotomy scissors. A small strip of orbicularis oculi was resected. There was minimal fat herniation, but there was a small lateral festoon. This area was also undermined and a small amount of fat was resected to allow the skin to re-drape flat. Complete hemostasis was achieved with gentle pressure application and electrocautery. The orbicularis was repaired with 6-0 monocryl interrupted sutures. The skin was re-draped and the excess was removed with iris scissors. The skin was then closed with a series of simple interrupted 6-0 prolene sutures. We turned our attention to the left lower eyelid and the same procedure was performed except for thefestoon, which was minimal on the left side. Once the left side was closed we checked and found thatwe had good symmetry between the sides and good improvement in the appearance of the lids. The eyes were rinsed with balanced salt solution and the incisions were all dressed with ophthalmic bacitracinointment. At this point the procedure concluded. The patient was aroused from sedation and taken to the recovery room in stable condition, having suffered no apparent untoward event. All sponge, needle, and instrument counts were correct at the conclusion of the procedure. After the patient had been safely transferred to the recovery area, I went to the surgical waiting room and spoke with her . We discussed the surgery, the expected recovery process, post-operative medications, activity restrictions, and the follow up plan. We discussed concerning signs and symptoms that should prompt a phone call, an early follow up visit, or a trip to the Emergency Department. I sought and answered his questions. He verbalized understanding and appreciation for Ms. Garzon's care. documented in this encounter Miscellaneous Notes Anesthesia Post-Eval - Aj Gray, AISHWARYA - 10/30/2018 192 EDT Anesthesia Post op Note Dinadonovan Trani [id number] Anesthesia received: MAC; Vital Signs: Temp: 36 ??C (96.8 ??F), Heart Rate: 65 BPM, BP: 124/74, Resp: 21, SpO2: 97 % Vital signs Stable: Yes Consciousness: Recovered to baseline Patient's participation in evaluation:Able to participate Temperature Status: Normothermic Respiratory Status: Airway patent Supplemental O2: Room air Oxygen Saturation: Within patient's normal range Cardiovascular Status: Within patient's normal range Post-op Hydration: Adequate Nausea / Vomiting: None Pain Control: Adequate Current Pain Score: Numeric Pain Level (Scale 1-10): 7, Total: 0 Post-op Assessment: Tolerated procedure well Disposition: Home Complications: No apparent anesthetic complications AISHWARYA Sol 10/30/2018 19:22 rief Op Note - Nita Lebron MD - 10/30/2018 1807 EDT Brief Op Note Date of Surgery: 10/30/18 Surgeon: Romel Garcia MD Resident: Nita Lebron MD, PGY5 Pre-Op Diagnosis: lower lid pouching; upper lid excess skin Post-Op Diagnosis: lower lid pouching; upper lid excess skin Procedure(s): bilateral upper and lower blepharoplasties Findings: lower lid pouching; upper lid excess skin Anesthesia Type: Monitored Local Anesthesia with Sedation Estimated Blood Loss: 10ml Unless otherwise noted, there was no blood loss, specimens removed, cultures obtained, or drains retained. Fluids: 800ml crystalloid Urine Output: NR Specimens/Cultures: none Drains/Packs: None Complications: none Disposition and Condition: PACU - hemodynamically stable. Wound Class: 1 Nita Lebron MD, PGY5 10/30/2018 18:07 Pager #[phone] documented in this encounter Plan of Treatment Not on filedocumented as of this encounter Visit Diagnoses Not on filedocumented in this encounter Administered Medications Inactive Administered Medications - up to 3 most recent administrations Medication Order MAR Action Action Date Dose Rate Site acetaminophen (TYLENOL) tablet Given 10/30/2018 18:42 EDT 1,000 mg 1,000 mg 1,000 mg, oral, PRN, 1 dose, Starting on Fri10/30/18 at 1717, Until Fri10/30/18 at 1842, Fever, Routine, Recovery (only) atropine 0.1 mg/mL syringe 0.5 mg 0.5 mg, intravenous, PRN, Starting on Fri10/30/18 at 1 717, Until Fri10/30/18 at 2135, Symptomatic HR < 50, Routine, Recovery (only) diphenhydrAMINE (BENADRYL) injection 6.2 5-12.5 mg 6.25-12.5 mg, intravenous, PRN, 1 dose, Starting on Fri10/30/18 at 1717, Until Fri10/30/18 at 2135, nausea, Routine, Recovery (only) fentaNYL citrate (PF) injection 25-50 mc g 25-50 mcg, intravenous, EVERY 5 MIN PRN, Starting on Fri10/30/18 at 1717, Until Fri10/30/18 at 2135, Pain, Routine, Recovery (only) ibuprofen (MOTRIN) tablet 400 mg Given 10/30/2018 18:42 EDT 400 mg 400 mg, oral, PRN, 1 dose, Starting on Fri10/30/18 at 1717, Until Fri10/30/18 at 1842, Pain, Routine, Recovery (only) lactated ringers (LR) infusion at 75 mL/hr, intravenous, CONTINUOUS, St arting on Fri10/30/18 at 1745, Until Fri10/30/18 at 2135, Routine, Recovery (only) lactated ringers (LR) infusion at 25 mL/hr, intravenous, CONTINUOUS, St arting on Fri10/30/18 at 1345, Until Fri10/30/18 at 2135, Routine, Preprocedure metoCLOPramide (REGLAN) injection 10 mg 10 mg, intravenous, PRN, 1 dose, Startin g on Fri10/30/18 at 1717, Until Fri10/30/18 at 2135, Nausea, Routine, Recovery (only) naloxone (NARCAN) injection 0.2 mg 0.2 mg, intravenous, PRN, Starting on Fri10/30/18 at 1 717, Until Fri10/30/18 at 2135, Opioid Reversal, Routine, Recovery (only) ondansetron (PF) (ZOFRAN) injection 4 mg 4 mg, intravenous, PRN, 1 dose, Starting on 10/30/18 at 1717, Until Fri10/30/18 at 213, Nausea, Vomiting, Routine, Recovery (only) documented in this encounter Historical Medications This list may reflect changes made after this encounter. Medication Sig Dispensed Refills Start Date End Date ZOLMitriptan (ZOMIG) 2.5 mg Take 2.5 mg by mouth 0 tabletIndications: migraine as needed for Migraine. omega 6-wfw-fxv-fish oil Take 1 Cap by mouth 0 (FISH OIL) 120-180-500 mg daily. capsule added in this encounter Active and Recently Administered Medications Times are shown in EDT. Scheduled Medication Order 10/28/2018 10/29/2018 10/30/2018 ceFAZolin (ANCEF) syringe 2 g 15 15 (Canceled Entry - Provider: Batch Job User Admin - Comment: Automatically canceled at discontinue of medication order) 2 g, intravenous, Administer over 10 Min utes, PRE-OP ONCE, 1 dose, Fri10/30/18 at 1515, Routine Continuous Medication Order 10/28/2018 10/29/2018 10/30/2018 lactated ringers (LR) infusion 1 926 (Completed - Provider: Loreta Palomino RN) at 75 mL/hr, intravenous, CONTINUOUS, St arting 10/30/18 at 1745, Until Fri10/30/18 at 2135, Routine lactated ringers (LR) infusion 1 345 (Canceled Entry - Provider: Batch Job User Admin - Comment: Automatically canceled at discontinue of medication order) at 25 mL/hr, intravenous, CONTINUOUS, St arting 10/30/18 at 1345, Until Fri10/30/18 at 2135, Routine PRN Medication Order 10/28/2018 10/29/2018 10/30/2018 acetaminophen (TYLENOL) tablet 1,000 mg (COMPLETED) 184 (Given - Provider: Frances Nielson RN) 1,000 mg, oral, PRN, 1 dose, Starting Fr i 10/30/18 at 1717, Until Discontinued, Fever, Routine atropine 0.1 mg/mL syringe 0.5 mg 0.5 mg, intravenous, PRN, Starting Fri at 1717, Until Fri10/30/18 at 2135, Symptomatic HR < 50, Routine diphenhydrAMINE (BENADRYL) injection 6.25-12.5 mg 6.25-12.5 mg, intravenous, PRN, 1 dose, Starting Fri10/30/18 at 1717, Until Fri10/30/18 at 2134, nausea, Routine fentaNYL citrate (PF) injection 25-50 mcg 25-50 mcg, intravenous, EVERY 5 MIN PRN, Starting Fri10/30/18 at 1717, Until Fri10/30/18 at 2134, Pain, Routine ibuprofen (MOTRIN) tablet 400 mg (COMPLETED) 1841 (Given - Provider: Frances Nielson RN) 400 mg, oral, PRN, 1 dose, Starting Fri10/30/18 at 1717, Until Discontinued, Pain, Routine metoCLOPramide (REGLAN) injection 10 mg 10 mg, intravenous, PRN, 1 dose, Startin g Fri10/30/18 at 1717, Until Fri10/30/18 at 2134, Nausea, Routine naloxone (NARCAN) injection 0.2 mg 0.2 mg, intravenous, PRN, Starting Fri at 1717, Until Fri10/30/18 at 2134, Opioid Reversal, Routine ondansetron (PF) (ZOFRAN) injection 4 mg 4 mg, intravenous, PRN, 1 dose, Starting Fri10/30/18 at 1717, Until Fri10/30/18 at 2134, Nausea, Vomiting, Routine documented in this encounter Orders Medications Ordered That Might Not Have Count Last Ord ered Date First Ordered Date Been Administered acetaminophen (TYLENOL) solution unit dose 1 10/30 cup 995 mg atropine 0.1 mg/mL syringe 0.5 mg 1 10/30/2018 ceFAZolin (ANCEF) syringe 2 g 1 10/30/2018 diphenhydrAMINE (BENADRYL) injection 1 10/30/2018 6.25-12.5 mg fentaNYL citrate (PF) injection 25-50 mcg 1 2018 lactated ringers (LR) infusion 2 10/30/2018 metoCLOPramide (REGLAN) injection 10 mg 1 10/31/19 19 naloxone (NARCAN) injection 0.2 mg 1 10/30/2018 ondansetron (PF) (ZOFRAN) injection 4 mg 1 019 Transfer Count Last Ordered Date First Ordered Date NOTIFY PPS PACU PATIENT DISCHARGE 1 10/30/2018 NOTIFY PPS PATIENT ARRIVAL IN PACU 1 10/30/2018 Discharge Count Last Ordered Date First Ordered Date DISCHARGE PATIENT 1 10/30/2018 documented in this encounter Care Teams Commercial Production Editor Relationship Specialty Start Date End Date Leena Higgins MD PCP - General 03/22/10 [address] [place] [address] documented as of this encounter
--- OUTSIDE RECORDS SUMMARY | 2022-02-15 15:07 | XMS_ITS | Encounter Summary ---
:1940 Author Organization [facility] Address [address] [place] [address] Care Team Providers Name Role Phone Leena Higgins MD Primary Care Provider Encounter Details Date Type Department Care Team Description 04/27/2010 Abstract [facility] Spine Leena Higgins MD Program - [facility] [address] [place] [address] [place] [address] [place], [place] [address] [phone] Social History Tobacco Use Types Packs/Day Years [...] on file documented as of this encounter Plan of Treatment Not on filedocumented as of this encounter Visit Diagnoses Not on filedocumented in this encounter Care Teams Cloth Reeler Relationship Specialty Start Date End Date Leena Higgins MD PCP - General 03/22/10 [address] [place] [address] documented as of this encounter
--- OUTSIDE RECORDS SUMMARY | 2022-02-15 15:07 | XMS_ITS | Encounter Summary ---
:1940 Author Organization [facility] Address [address] [place] [address] Care Team Providers Name Role Phone Leena Higgins MD Primary Care Provider Reason for Referral Surgery (Routine) - Closed Specialty Diagnoses / Procedures Referred By Contact Refer red To Contact Plastic Surgery Diagnoses Encounter for cosmetic surgery Romel Garcia MD Willson, Thomas D, MD Procedures [place] REVISION OF LOWER EYELID [place] REVISION OF UPPER EYELID [address] [place] [phone] Fax: Referral ID Status Reason Start Date Expiration Date Visits V isits Requested Authorized [id number] Closed Specialty 08/17/2018 1 1 Services Required Question Answer Reason for Request: bilateral upper and lower bl epharoplasties Scheduled Surgery Date: 08/17/2018 Laterality: Bilateral Location of Procedure: [facility] [place] [facility]/ Outpt Anesthesia: MAC Estimated Length of Procedure: 180 CPT Code: 66318, 31638 Reason for Visit Reason Comments New Patient Visit eye lift. pouch under the r ight eye and discuss options Encounter Details Date Type Department Care Team Description 08/17/2018 Office Visit [facility] Romel Garcia for Plastic, Reconstructive MD [facility] cosmetic surgery & Cosmetic Surgery - [address]) [facility] [address] [place] [id number] Social History Tobacco Use Types Packs/Day Years [...] - Inhaled Oxygen Concentration - - Weight 68 kg (150 lb) 08/17/2018 1343 EST Height 160 cm (5' 3) 08/17/2018 1343 EST Body Mass Index 26.57 08/17/2018 1343 EST documented in this encounter Discharge Disposition Disposition Code Departure Means Destination Auto Discharge documented in this encounter Progress Notes Romel Garcia MD - 08/17/2018 1345 EST Patient Name: Dina Garzon Date of Service: 08/17/18 Referring Provider: Referral Self Reason for Consultation: periorbital aging Chief Complaint: pouch under right eye History of Present Illness Ms. Garzon is a 78 year old woman who has noticed a pouch under her right eye for the last several years. She notes that she has a similar area under her left eye, but it is much smaller. She is interested in discussion the options for periorbital rejuvenation. She is in otherwise good health and reports that she has no medical problems. Smoking: non-smoker Ethanol: denies Other substances: denies Blood clots/DVT/leg swelling: no personal history Family history of blood clots: no known family history Anesthesia: no history of anesthetic complications Past Medical History No reported medical problems Past Surgical History Cataract surgery Social History Social History Socioeconomic History ??? Marital status: Spouse name: Not on file ??? Number of children: Not on file ??? Years of education: Not on file ??? Highest education level: Not on file Occupational History ??? Not on file Social Needs ??? Financial resource strain: Not on file ??? Food insecurity: Worry: Not on file Inability: Not on file ??? Transportation needs: Medical: Not on file Non-medical: Not on file Tobacco Use ??? Smoking status: Never Smoker Substance and Sexual Activity ??? Alcohol use: Yes Comment: Wine occasionally ??? Drug use: No ??? Sexual activity: Not on file Lifestyle ??? Physical activity: Days per week: Not on file Minutes per session: Not on file ??? Stress: Not on file Relationships ??? Social connections: Talks on phone: Not on file Gets together: Not on file Attends mormonism service: Not on file Active member of club or organization: Not on file Attends meetings of clubs or organizations: Not on file Relationship status: Not on file ??? Intimate partner violence: Fear of current or ex partner: Not on file Emotionally abused: Not on file Physically abused: Not on file Forced sexual activity: Not on file Other Topics Concern ??? Not on file Social History Narrative ??? Not on file Family History Family History Problem Relation Age of Onset ??? Arthritis Other Allergies No Known Allergies Medications Current Outpatient Medications on File Prior to Visit Medication Sig Dispense Refill ??? calcium carbonate (OS-ROSALES) 500 mg (1,250 mg) tablet Take 1 Tab by mouth daily. ??? Glucosamine 1,000 mg Tab Take by mouth daily. ??? ibuprofen (MOTRIN) 200 mg tablet Take 200 mg by mouth every 6 hours as needed. No current facility-administered medications on file prior to visit. Review of Systems: A complete review of systems was performed and is negative except for the symptoms described in the history of present illness. Physical Examination There were no vitals filed for this visit. Ms. Garzon is resting comfortably and is in no acute distress. She is alert and oriented. Her interactions are appropriate. Affect is positive and range of affect is full. Examination of the face reveals diffuse, expected facial aging. There are multiple shallow transverse forehead rhytids. There are deeper vertical glabellar rhytids. The brows are in good position at the supraorbital rims. There is mild lateral hooding bilaterally. There is bilateral upper eyelid dermatochalasis. There is lower eyelid skin excess bilaterally and fat herniation, worse on the right thanon the left. There is bilateral tear trough. There are shoshone-paiute's feet bilaterally. There has been descent of the midface. There are moderate depth nasolabial folds. There are moderate depth marionette lines. There are fine lines over the upper lip. There is bilateral jowling. There is blunting of the cervicomental angle. Imaging: There is no relevant imaging Lab Studies: There are no recent lab studies Impression and Plan: Ms. Garzon is a 78 year old woman who is seeking consultation for a prominent bag under her right eye. She has fat herniation on that side as well as periorbital aging bilaterally. We discussed thetreatment options available to her. I explained that lower blepharoplasty is the best treatment for her condition, but that I recommend that if she chooses to pursue that procedure, we should operate on both sides in order to give her the best possible result. We also discussed the option of performing upper blepharoplasties at the same time in order to provide the best possible periorbital rejuvenation. Ms. Garzon is not bothered by her facial aging other than the bags under her eyes; she reports that she does not want to discuss other facial rejuvenation techniques. With regard to lower blepharoplasties, we discussed the procedure, the expected result, the recuperation process, post-operative follow up, medications, and activity restrictions. We discussed the pros and cons of the procedure itself and the pros and cons of performing lower blepharoplasties with and without upper blepharoplasties. I sought and answered her questions. She verbalized understanding and would like to consider her options before deciding whether to proceed. A copy of the [facility] blepharoplasty informed consent was provided for her review at home. She will follow up with me on an as-needed basis if she has more questions or she decides she would like to move forward with surgery. Informed consent for photography was reviewed and signed today. Photographs were taken today. Romel Garcia MD development administrator and Pediatrics Plastic, Reconstructive, and Cosmetic Surgery Craniofacial and Pediatric Plastic Surgery I spent 45 minutes in [id number] consultation with Ms. Garzon today. More than 50% of that time was spent in counseling and coordination of care as described in today's note. documented in this encounter Plan of Treatment Scheduled Referrals Name Type Priority Associated Diagnoses Order S chedule AMB CONS/FOLLOW UP Outpatient Referral Routine Encounter For O rdered: SURGERY SCHED ORD Cosmetic Surgery 2018 documented as of this encounter Visit Diagnoses Diagnosis Encounter for cosmetic surgery - Primary Other plastic surgery for unacceptable c osmetic appearance documented in this encounter Discontinued Medications Medication Sig Discontinue Reason Start Date End Date gabapentin (NEURONTIN) Take 1 Cap by mouth. 1 Therapy completed 02/201108/17/2018 300 mg capsule cap at night x 7days. Then 1 cap in morning, 1 at night. Then 1 cap 3 x per day. pregabalin (LYRICA) 50 Take 1 Cap by mouth 2 Therapy completed 08/201008/17/2018 mg capsuleIndications: times daily. Take 1 Chronic pain syndrome tab by mouth qHS x 7 days then 1 tab by mouth BID thereafter documented as of this encounter Care Teams Loan Assistant Relationship Specialty Start Date End Date Leena Higgins MD PCP - General 03/22/[address] [place] [id number] documented as of this encounter
[2022-02-15 22:10] LABS: Abs Immature Grans 0.02 10^3/uL (0.0-0.06); Absolute Basophil Count 0.04 10^3/uL (0.0-0.2); Absolute Eosinophil Count 0.08 10^3/uL (0.0-0.7); Absolute Lymphocyte Count 1.79 10^3/uL (1.2-3.4); Absolute Monocyte Count 0.54 10^3/uL (0.1-0.8); Absolute Neutrophil Count 5.29 10^3/uL (1.2-6.7); Basophils % 0.5; HCT 43.4 % (36.0-46.0); HGB 14.5 g/dL (11.2-15.7); Immature Grans % 0.3; Lymphocytes % 23.1; MCH 31.2 pg (27.0-33.0); MCHC 33.4 % (32.0-36.0); MCV 93 fL (80-95); MPV 10.8 fL (8.0-11.0); Neutrophils % 68.1; Platelet Count 243 10^3/uL (130-400); RBC 4.65 10^6/uL (3.93-5.22); RDW-SD 41.3 fL; WBC 7.76 10^3/uL (4.4-10.8)
[2022-02-15 22:21] LABS: C-Reactive Protein 0.75 mg/dL (0.0-0.3)
== END 2022-02-15 14:50 | disposition home or self-care (01) ==
LOC: NCHCN 14:49
PROVIDERS: Visit Provider Family Medicine
DX: M35.3 Polymyalgia rheumatica (principal); R53.83 Other fatigue
CPT/HCPCS: 85025; 86140